=== PATIENT | male | born 1950 | race Caucasian/White ===

== ENCOUNTER 2017-09-16 15:42 | Observation (INO) | payer MEDICARE, SELFPAY ==
[2017-09-16] VITALS (15 sets, daily range): BP systolic 106–150; BP diastolic 68–83; PULSE 63–76; RESP 16–25; TEMP 36.4–36.8; O2SAT 93–97; BMI 40.1
--- NOTE | 2017-09-16 15:50 | XR_ITS ---
XR chest CHP 2V HISTORY: ITS.REASON: dyspnea ORDERING PHYSICIAN: Alfonso Freire MD PATIENT AGE: 67 years COMPARISON: 03/31/2016 FINDINGS: The cardiomediastinal silhouette and pulmonary vascularity are within normal limits. There is coarsening of the bronchovascular markings which may be related to smoking-related lung disease/chronic bronchitis. No lobar consolidation or collapse. No significant change from the previous exam.. No acute bony abnormalities. IMPRESSION: Chronic coarsening of the bronchovascular markings consistent with smoking-related lung disease/chronic bronchitis. No change from 03/31/2016
[2017-09-16 16:46] LABS: ABG Base Excess -4.3 mmol/L (-2.4-2.3); ABG Oxygen Saturation 84 % (90-100); ABG PCO2 30.9 mmhg (35.0-45.0); ABG PH 7.43 mmol/L (7.35-7.45); ABG PO2 50.6 mmhg (80-100)
[2017-09-16 16:48] LABS: Allen's Test ACCEPTABLE; Oxygen ROOM AIR %; Source L RADIAL
[2017-09-16 17:26] LABS: Basophils % 0.4 % (0.1-2.0); Eosinophils # 0.2 K/mm3 (0.0-0.4); Eosinophils % 2.1 % (0.1-12.0); Hematocrit 28.8 % (42.0-52.0); Lymphocytes # 0.9 K/mm3 (0.7-4.5); Lymphocytes % 11.9 K/mm3 (10-50); Mean Corpuscular HGB Conc 27.6 g/dL (31.8-35.4); Mean Corpuscular Hemoglobin 17.9 pg (27.0-31.2); Mean Corpuscular Volume 64.9 fl (80-94); Mean Platelet Volume 6.6 fl (7.4-10.4); Monocytes # 0.5 K/mm3 (0.1-1.0); Monocytes % 6.9 % (1.7-9.3); Neutrophils # 6.1 K/mm3 (1.8-7.8); Neutrophils % 78.6 % (37.0-80.0); Platelet Count 325 K/mm3 (142-424); Red Blood Count 4.43 M/mm3 (4.60-6.20); Red Cell Distribution Width 18.7 % (11.5-17.5); White Blood Count 7.8 K/mm3 (4.8-10.8)
[2017-09-16 17:40] LABS: Hemoglobin 7.9 g/dL (14.1-18.0); Lactic Acid 1.7 mmol/L (0.4-2.0)
[2017-09-16 17:42] LABS: Alanine Aminotransferase 14 U/L (12-78); Albumin Level 3.3 gm/dL (3.4-5.0); Albumin/Globulin Ratio 0.7 (1.1-1.8); Alkaline Phosphatase 154 U/L (46-116); Amylase 49 U/L (25-125); Anion Gap 6.7 mEq/L (5-15); Aspartate Amino Transferase 17 U/L (15-37); Bilirubin,Total 1.2 mg/dL (0.2-1.0); Blood Urea Nitrogen 17 mg/dL (7-18); Calcium 8.8 mg/dL (8.5-10.1); Carbon Dioxide 26 mmol/L (21.0-32.0); Chloride 101 mmol/L (98-107); Creatinine Clearance Estimated 98 mL/min (0-300); Creatinine,Serum 1.35 mg/dL (0.70-1.30); Estimated Glomerular Filt Rate 53 ml/min (>60); GFR (African American) 64 ML/MIN (>60); Globulin 4.9 gm/dl (1.3-3.2); Glucose 115 mg/dL (74-106); Lipase 117 u/L (73-393); Potassium 3.7 mmoL/L (3.5-5.1); Sodium 130 mmol/L (136-145); Total Protein,Serum 8.2 gm/dL (6.4-8.2)
[2017-09-16 17:50] LABS: D-Dimer 526 (0-400)
--- NOTE | 2017-09-16 17:52 | CT_ITS ---
CT angio chest HISTORY: Axial and there well aerated and is multilocular markings chest pain with positive d-dimer ITS.REASON: positive d-dimer ORDERING PHYSICIAN: Heath Lugo MD PATIENT AGE: 67 years TECHNIQUE: Axial images obtained following the administration of 75 mL of Isovue 370 . Sagittal, and coronal reformatted images are also generated and reviewed. COMPARISON: None FINDINGS: No evidence of pulmonary embolus or aortic aneurysm. Normal heart size. There is mild thickening of the pericardium posteriorly. Coronary artery calcifications are present. There is mild mediastinal adenopathy with scattered nodes within the mediastinum. The largest node is pretracheal region at 1.9 x 1.4 cm. Other smaller nodes are present including a cluster of nodes in the right paratracheal region at 2.7 x 2.8 cm. Small nodes are present in the nicolas. There are mild fibrotic changes in the periphery of the lung lewis with some honeycombing in the left lung base with some prominence of the interstitium and bronchial thickening. No lobar consolidation or collapse. There is trace left-sided effusion Upper abdominal images show blurring gallstones in the gallbladder. There is a 2.6 x 1.6 isodensity in the left hepatic lobe likely related to a cyst. Thoracic spondylosis. IMPRESSION: 1. No evidence of pulmonary embolus or aortic aneurysm. 2. Interstitial changes with mild pulmonary fibrosis infiltrate is left effusion. 3. Mediastinal adenopathy. 4. Cholelithiasis with left hepatic cyst
--- NOTE | 2017-09-16 17:52 | HMH.EDSOB ---
ED Disposition Clinical Impression: Hypoxia Anemia Qualifiers: Anemia type: iron deficiency Iron deficiency anemia type: unspecified iron deficiency Qualified Code(s): D50.9 - Iron deficiency anemia, unspecified Disposition: Admitted As Inpatient Condition on Discharge: Good Time of Disposition: 19:17 - Critical Care Critical Care Time: No Attestation: On 09/16/17, the high probability of a clinically significant, sudden or life threatening deterioration of the following system(s) required my full and direct attention, intervention and personal management. The time I documented below is in addition to time spent performing reported procedures but includes the following listed in this critical care notation. Total Critical Care Time: 35 Vital system(s) involved:: Respiratory Failure My critical care processes included: Assessment & monitoring of V/S, Initial and Re-exams, Data Review/Interpretation, Coordinating Care, Medication Orders and management, Documentation Medical Decision Making - Medical Records Medical records reviewed: Yes: I reviewed the patient's medical records. Vital Signs: 09/16/17 15:43 09/16/17 19:48 09/16/17 20:00 Temperature 98.1 F 97.8 F Temperature Source Oral Oral Pulse Rate Pulse Rate [Right Radial] 69 66 Respiratory Rate 20 23 18 Blood Pressure Blood Pressure [Right Arm] 106/82 150/83 Blood Pressure Mean [Right Arm] 90 105 Blood Pressure Source Blood Pressure Source [Right Arm] Automatic Cuff Automatic Cuff Blood Pressure Position Blood Pressure Position [Right Arm] Sitting Sitting 02 Sat by Pulse Oximetry 97 93 L 93 L Oxygen Delivery Method Room Air Nasal Cannula Nasal Cannula Oxygen Flow Rate (LPM) 2 2 09/16/17 20:07 09/16/17 21:00 Temperature Temperature Source Pulse Rate 63 Pulse Rate [Right Radial] Respiratory Rate 25 H Blood Pressure 128/73 Blood Pressure [Right Arm] Blood Pressure Mean [Right Arm] Blood Pressure Source Automatic Cuff Blood Pressure Source [Right Arm] Blood Pressure Position Sitting Blood Pressure Position [Right Arm] 02 Sat by Pulse Oximetry Oxygen Delivery Method Nasal Cannula Nasal Cannula Oxygen Flow Rate (LPM) 2 2 - Lab Data Lab Results 09/16/17 15:50: Specimen Source L radial, O2 % Room air, ABG pH 7.43, ABG pCO2 30.9 L, ABG pO2 50.6 L, ABG HCO3 20.0 L, ABG Total CO2 21.0 L, ABG O2 Saturation 84 L*, ABG Base Excess -4.3 L, Vinod Test Acceptable 09/16/17 17:10: WBC 7.8, RBC 4.43 L, Hgb 7.9 L*, Hct 28.8 L, MCV 64.9 L, MCH 17.9 L, MCHC 27.6 L, RDW 18.7 H, Plt Count 325, MPV 6.6 L, Neut % (Auto) 78.6, Lymph % (Auto) 11.9, Craig % (Auto) 6.9, Eos % (Auto) 2.1, Baso % (Auto) 0.4, Neut # (Auto) 6.1, Lymph # (Auto) 0.9, Craig # (Auto) 0.5, Eos # (Auto) 0.2, Baso # (Auto) 0.0 09/16/17 17:10: Sodium 130 L, Potassium 3.7, Chloride 101, Carbon Dioxide 26, Anion Gap 6.7, BUN 17, Creatinine 1.35 H, Estimated Creat Clear 98, Estimated GFR 53 L, Est GFR ( Amer) 64, Glucose 115 H, Calcium 8.8, Total Bilirubin 1.2 H, AST 17, ALT 14, Alkaline Phosphatase 154 H, Total Protein 8.2, Albumin 3.3 L, Globulin 4.9 H, Albumin/Globulin Ratio 0.7 L, Amylase 49, Lipase 117 09/16/17 17:10: Total Creatine Kinase 64, CK-MB (CK-2) < 0.5, CK-MB (CK-2) Rel Index 0.8, Troponin I < 0.02 09/16/17 17:10: D-Dimer 526 H* 09/16/17 17:10: B-Natriuretic Peptide 160 H 09/16/17 17:10: Lactic Acid 1.7 09/16/17 17:10: Ferritin 14 09/16/17 17:10: Iron 21 L, TIBC 434, Iron Saturation 5 L, Unsaturated IBC 413 H, Vitamin B12 151 L, Folate 11.6 09/16/17 19:40: Blood Type O Negative, Antibody Screen Negative, Crossmatch (AHG) See Detail Result diagrams: 09/17/17 03:45 09/16/17 17:10 Orders (Tests/Meds): ED MEDICATIONS Discontinued Medications Generic Name Dose Route Start Last Admin Trade Name Freq PRN Reason Stop Dose Admin Sodium Chloride 250 mls @ 25 mls/hr 09/16/17 19:45 09/16/17 21:50 Sod Chloride 0.9% 250ml Bag IV 10/16/17
[2017-09-16 17:55] LABS: Creatine Kinase 64 U/L (39-308); Troponin I < 0.02 ng/ml (0.00-0.06)
[2017-09-16 17:56] LABS: CKMB Relative Index 0.8 U/L (0-4.0); Creatine Kinase MB < 0.5 mg/ml (0.0-3.6)
--- NOTE | 2017-09-16 22:10 | PC.NURSE ---
pt admitted to floor and to receive 2 units of blood, in the TAR documentation tool the first unit of blood did not scan appropriately, pre vitals were obtained at 2149, blood unit number [id number] was verified with Radha Tejada RN, blood began transfusing at 2210 at a rate of 75 ml/hr, vitals signs were obtained per blood administration protocol and documented under the vital sign assessment tool on the pt worklist, no adverse reactions noted, total intake was 250 ml, 2nd unit was transfused without issue and documented accordingly in the TAR documentation tool.
[2017-09-17] VITALS (14 sets, daily range): BP systolic 112–136; BP diastolic 69–82; PULSE 66–80; RESP 18–20; TEMP 36.5–36.8; O2SAT 92–96
[2017-09-17 04:26] LABS: Hematocrit 30.3 % (42.0-52.0)
[2017-09-17 04:30] LABS: Hemoglobin 8.9 g/dL (14.1-18.0)
--- NOTE | 2017-09-17 07:38 | HMH.PHAVTE ---
[facility] Pharmacy VTE Monitoring - Patient Demographics Admission date: 09/16/17 Report Date: 09/17/17 Time: 07:38 Allergies/Adverse Reactions: Patient Allergies No Known Allergies Allergy (Unverified 08/17/17 14:34) Height: 1.78 m Weight: 127.006 kg Patient Problems: Current Active Problems Hypoxia (Acute) Anemia (Acute) - VTE Risk Labs: VTE Related Lab Results Hgb 8.9 g/dL (14.1-18.0) L D 09/17/17 03:45 Hct 30.3 % (42.0-52.0) L 09/17/17 03:45 Plt Count 325 K/mm3 (142-424) 09/16/17 17:10 BUN 17 mg/dL (7-18) 09/16/17 17:10 Creatinine 1.35 mg/dL (0.70-1.30) H 09/16/17 17:10 Estimated Creat Clear 98 mL/min (0-300) 09/16/17 17:10 VTE Score: 3 VTE Risk Level: Low Risk Clinical Trial Participant: No - Prophylaxis VTE Prophylaxis Ordered?: Yes Types of VTE Prophylaxis: TEDS Knee High
--- NOTE | 2017-09-17 08:51 | HMH.HP ---
*Admission Date: 09/16/17 <Renee Vila 09/17/17 09:04> *Chief complaint: SOA <Renee Vila 09/17/17 09:04> *History of present illness: Mr. Heck is 67-year-old male who states he has been getting progressively more short of air with walking. He presented to the office of [facility] yesterday to be evaluated and his oxygen sats were low (77-82% on RA) as was his hemoglobin (8). He was sent to the ER for evaluation and treatment. He was admitted and placed on oxygen and given 2 units of blood. He states this a.m. he is feeling better. He is still wearing oxygen and his sats are in the upper 90's on 2L. He denies any pain and is anxious to go home. <Renee Vila 09/17/17 11:41> [facility] History Medical History: Reports:: Atherosclerotic Heart Disease, Hyperlipidemia, Hypertension <Renee Vila 09/17/17 11:41> Other Medical History: Reports: Arthritis <Renee Vila 09/17/17 11:41> Laterality Cases: Bilateral: Partial Knee Replacement <Renee Vila 09/17/17 11:41> Other Surgeries: Yes: Coronary Stent <Renee Vila 09/17/17 11:41> Comment: Left foot, Bone spur removed right heel <Renee Vila 09/17/17 11:41> - *Social History Smoking Status: Never smoker <Renee Vila 09/17/17 11:41> - Psychiatric History Expresses thoughts of harming self/others: None <Renee Vial 09/17/17 09:04> Suicide Plan Description: No Plan <Renee Vila 09/17/17 09:04> *Family Hx:: Coronary Artery Disease, Heart Attack <Renee Vila 09/17/17 11:41> Review of Systems - Constitutional Reports fatigue, Reports lack of energy, Reports weakness <Renee Vila 09/17/17 09:04> - Eyes Denies blurry vision, Denies double vision <Renee Vila 09/17/17 09:04> - ENT Reports nasal congestion, Reports sore throat <Renee Vila 09/17/17 09:04> - *Cardiovascular Reports chest pain with activity, Reports shortness of breath with activity, Reports fast heart rate <Renee Vila 09/17/17 09:04> - *Respiratory Reports cough, Reports shortness of breath with activity <Renee Vila 09/17/17 09:04> - *Gastrointestinal Denies abdominal pain, Denies loose stools, Denies nausea, Denies vomiting <Renee Vila 09/17/17 09:04> - *Genitourinary Denies difficulty urinating, Denies painful urination <Renee Vila 09/17/17 09:04> - *Musculoskeletal Denies joint pain <Renee Vila 09/17/17 09:04> - *Neurologic Denies confusion, Denies dizziness <Renee Vila 09/17/17 09:04> Meds Home Medications Medication Instructions Recorded Confirmed Type Aspirin [Aspirin 81mg EC Tab] 81 mg PO DAILY 09/17/17 10/05/17 History Atorvastatin Calcium [Atorvastatin 40 mg PO DAILY 09/17/17 10/05/17 History 40mg Tab] Carvedilol [Carvedilol 6.25mg Tab] 6.25 mg PO BID 09/17/17 10/05/17 History Omeprazole [Omeprazole 40mg 40 mg PO DAILY 09/17/17 10/05/17 History Capsule] Ranolazine [Ranexa 500mg ER tablet] 500 mg PO BID 09/17/17 10/05/17 History ALPRAZolam [Alprazolam 0.25mg 0.5 mg PO DAILY 10/04/17 10/05/17 History Tab] Acetaminophen 500 mg PO NEEDED PRN 10/04/17 10/05/17 History <Heath Lugo - 11/22/17 21:00> Allergies Allergy/AdvReac Type Severity Reaction Status Date / Time No Known Allergies Allergy Verified 11/22/17 13:51 <Heath Lugo - 11/22/17 21:00> Exam Vital signs and Labs for Last 24 Hours: Temp Pulse Resp BP Pulse Ox 97.9 F 74 18 136/82 92 L 09/17/17 12:00 09/17/17 12:00 09/17/17 12:00 09/17/17 12:00 09/17/17 12:00 <Heath Lugo - 11/22/17 21:00> Temp Pulse Resp BP Pulse Ox 98.1 F 70 20 112/74 94 L 09/17/17 03:35 09/17/17 04:00 09/17/17 03:35 09/17/17 03:35 09/17/17 03:35 Laboratory Results - last 24 hr 09/16/17 15:50: Specimen Source L radial, O2 % Room air, ABG pH 7.43, ABG pCO2 30.9 L, ABG pO2 50.6 L, ABG HCO3 20.0 L, ABG Total CO2 21.0 L,
--- NOTE | 2017-09-17 08:54 | P.HP_ITS ---
*Admission Date: 09/16/17 <Renee Vila 09/17/17 09:04> *Chief complaint: SOA <Renee Vila 09/17/17 09:04> *History of present illness: Mr. Heck is 67-year-old male who states he has been getting progressively more short of air with walking. He presented to the office of [facility] yesterday to be evaluated and his oxygen sats were low (77-82% on RA) as was his hemoglobin (8). He was sent to the ER for evaluation and treatment. He was admitted and placed on oxygen and given 2 units of blood. He states this a.m. he is feeling better. He is still wearing oxygen and his sats are in the upper 90's on 2L. He denies any pain and is anxious to go home. <Renee Vila 09/17/17 11:41> [facility] History Medical History: Reports:: Atherosclerotic Heart Disease, Hyperlipidemia, Hypertension <Renee Vila 09/17/17 11:41> Other Medical History: Reports: Arthritis <Renee Vila 09/17/17 11:41> Laterality Cases: Bilateral: Partial Knee Replacement <Renee Vila 11:41> Other Surgeries: Yes: Coronary Stent <Renee Vila 09/17/17 11:41> Comment: Left foot, Bone spur removed right heel <Renee Vila 09/17/17 11: 41> - *Social History Smoking Status: Never smoker <Renee Vila 09/17/17 11:41> - Psychiatric History Expresses thoughts of harming self/others: None <Renee Vila 09/17/17 09: 04> Suicide Plan Description: No Plan <Renee Vila 09/17/17 09:04> *Family Hx:: Coronary Artery Disease, Heart Attack <Renee Vila 09/17/17 11:41> Review of Systems - Constitutional Reports fatigue, Reports lack of energy, Reports weakness <Renee Vial 09:04> - Eyes Denies blurry vision, Denies double vision <Renee Vila 09/17/17 09:04> - ENT Reports nasal congestion, Reports sore throat <Renee Vila - 09/17/17 09:04> - *Cardiovascular Reports chest pain with activity, Reports shortness of breath with activity, Reports fast heart rate <Renee Vila 09/17/17 09:04> - *Respiratory Reports cough, Reports shortness of breath with activity <Renee Vila 09:04> - *Gastrointestinal Denies abdominal pain, Denies loose stools, Denies nausea, Denies vomiting < Renee Vila 09/17/17 09:04> - *Genitourinary Denies difficulty urinating, Denies painful urination <Renee Vila 09:04> - *Musculoskeletal Denies joint pain <Renee Vila 09/17/17 09:04> - *Neurologic Denies confusion, Denies dizziness <Renee Vila 09/17/17 09:04> Meds Home Medications Medication Instructions Recorded Confirmed Type Aspirin [Aspirin 81mg EC Tab] 81 mg PO DAILY 09/17/17 10/05/17 History Atorvastatin Calcium [Atorvastatin 40 mg PO DAILY 09/17/17 10/05/17 History 40mg Tab] Carvedilol [Carvedilol 6.25mg Tab] 6.25 mg PO BID 09/17/17 10/05/17 History Omeprazole [Omeprazole 40mg 40 mg PO DAILY 09/17/17 10/05/17 History Capsule] Ranolazine [Ranexa 500mg ER tablet] 500 mg PO BID 09/17/17 10/05/17 History ALPRAZolam [Alprazolam 0.25mg 0.5 mg PO DAILY 10/04/17 10/05/17 History Tab] Acetaminophen 500 mg PO NEEDED PRN 10/04/17 10/05/17 History <Heath Lugo - 11/22/17 21:00> Allergies Allergy/AdvReac Type Severity Reaction Status Date / Time No Known Allergies Allergy Verified 11/22/17 13:51 <Heath Lugo - 11/22/17 21:00> Exam Vital signs and Labs for Last 24 Hours: Temp Pulse Resp BP Pu
[2017-09-17 10:29] LABS: Ferritin 14 ng/mL (8-388)
--- NOTE | 2017-09-17 12:30 | HMH.DCSUM ---
General - General Admission date: 09/16/17 <Heath Lugo - 09/17/17 12:31> Discharge date: 09/17/17 <Renee Vila - 09/21/17 13:55> HPI HPI: Mr. Heck is 67-year-old male who states he has been getting progressively more short of air with walking. He presented to the office of [facility] to be evaluated and his oxygen sats were low (77-82% on RA) as was his hemoglobin (8). He was sent to the ER for evaluation and treatment. He was admitted and placed on oxygen and given 2 units of blood. He states this a.m. he is feeling better. He is still wearing oxygen and his sats are in the upper 90's on 2L. He denies any pain and is anxious to go home. <Heath Lugo - 09/17/17 12:31> Objective Vital signs: Temp Pulse Resp BP Pulse Ox 97.9 F 74 18 136/82 92 L 09/17/17 12:00 09/17/17 12:00 09/17/17 12:00 09/17/17 12:00 09/17/17 12:00 <Renee Vila - 09/21/17 13:55> Temp Pulse Resp BP Pulse Ox 98.0 F 74 18 112/74 96 09/17/17 08:00 09/17/17 08:00 09/17/17 08:00 09/17/17 08:00 09/17/17 08:00 <Heath Lugo - 09/17/17 12:31> Narrative: - Constitutional no acute distress - *Routine HEENT Exam Head: Present: normocephalic, atraumatic Eye: Present: EOMI, PERRL ENT: Present: mucous membranes moist - *Routine Neck Exam Present: supple, full ROM - *Routine Respiratory Exam Present: rales (bilateral bases). Absent: wheezes - *Routine Cardiovascular Exam Present: RRR - *Routine Abdominal Exam Present: soft, normoactive bowel sounds. Absent: tenderness - *Routine Extremities Exam Present: edema (1+ bilaterally) - *Routine Skin Exam Present: intact - *Routine Neurological Exam Present: alert, oriented X3 <Renee Vila - 09/21/17 13:55> Hospital Course Hospital Course: A CTA showed no PE. He was transfused with 2 units of PRBC's and his oxygen was weaned. H&H improved and dyspnea resolved. He was weaned to RA with sats at 96%. He was stable for discharge and will complete anemia w/u as outpt. <Renee Vila - 09/21/17 13:55> Results Labs on day of discharge: Labs from last 24 hours 09/17/17 03:45 Hgb 8.9 L D Hct 30.3 L <ParishHeath Moses - 09/17/17 12:31> DS: Diagnosis - Discharge Diagnosis (1) Anemia Status: Acute (2) Hypoxia Status: Acute <Renee Vila - 09/21/17 13:55> (1) Anemia (2) Hypoxia (3) HBP (high blood pressure) (4) Hyperlipidemia (5) History of ASCVD <Heath Lugo - 09/17/17 12:30> Meds Home Medications Medication Instructions Recorded Confirmed Type Amlodipine Besylate [Norvasc 5mg 5 mg PO DAILY 09/17/17 09/17/17 History tablet] Aspirin [Aspirin 81mg EC Tab] 81 mg PO DAILY 09/17/17 09/17/17 History Atorvastatin Calcium [Atorvastatin 40 mg PO DAILY 09/17/17 09/17/17 History 40mg Tab] Carvedilol [Carvedilol 6.25mg Tab] 6.25 mg PO BID 09/17/17 09/17/17 History Isosorbide Mononitrate [Imdur 30mg 30 mg PO DAILY 09/17/17 09/17/17 History ER tablet] Lisinopril [Lisinopril 20mg Tab] 20 mg PO BID 09/17/17 09/17/17 History Omeprazole [Omeprazole 40mg 40 mg PO DAILY 09/17/17 09/17/17 History Capsule] Ranolazine [Ranexa 500mg ER tablet] 500 mg PO BID 09/17/17 09/17/17 History <Renee Vila - 09/21/17 13:55> Allergies Allergy/AdvReac Type Severity Reaction Status Date / Time No Known Allergies Allergy Unverified 08/17/17 14:34 <Renee Vila 09/21/17 13:55> Discharge Plan - Patient Discharge Instructions ACTIVITY: Continue current activity <Heath Lugo - 09/17/17 12:31> DIET: continue same diet <Heath Lugo - 09/17/17 12:31> Patient Instructions: Anemia <Renee Vila - 09/21/17 13:55> - Follow up Plan Follow up with: Heath Lugo MD [Primary Care Provider] - 09/21/17 <Renee Vila - 09/21/17 13:55> Dispositio
--- NOTE | 2017-09-17 12:36 | P.PN_ITS ---
Internal Medicine - PN: Subj *Date: 09/17/17 *Time: 12:32 Interval history: He has been weaned to RA with O2 sats at 96% and no complaints of SOA. No abdominal pain. No BM Exam Vital signs and Labs for Last 24 Hours: Temp Pulse Resp BP Pulse Ox 98.0 F 74 18 112/74 96 09/17/17 08:00 09/17/17 08:00 09/17/17 08:00 09/17/17 08:00 09/17/17 08:00 Laboratory Results - last 24 hr 09/17/17 03:45: Hgb 8.9 L D, Hct 30.3 L I & O for Last 24 hours: Intake & Output 09/15/17 09/16/17 09/17/17 09/18/17 11:59 11:59 11:59 11:59 Intake Total 500 / 500 Balance 500 / 500 Weight 280 lb - Constitutional no acute distress - *Routine Respiratory Exam Present: CTA bilaterally - *Routine Cardiovascular Exam Present: RRR - *Routine Abdominal Exam Present: soft. Absent: tenderness, distended Assessment and Plan (1) Anemia Current visit: Yes Status: Acute Qualifiers: Anemia type: iron deficiency Iron deficiency anemia type: unspecified iron deficiency Qualified Code(s): D50.9 - Iron deficiency anemia, unspecified Category: Medical Code(s): D64.9 - Anemia, unspecified (2) Hypoxia Current visit: Yes Status: Acute Category: Medical Code(s): R09.02 - Hypoxemia (3) HBP (high blood pressure) Current visit: Yes Status: Acute Category: Medical Code(s): I10 - Essential (primary) hypertension (4) Hyperlipidemia Current visit: Yes Status: Acute Category: Medical Code(s): E78.5 - Hyperlipidemia, unspecified (5) History of ASCVD Current visit: Yes Status: Acute Category: Medical Code(s): Z86.79 - Personal history of other diseases of the circulatory system - Assessment and plan all Dx Assessment and Plan for all problems:: H&H has improved and dyspnea resolved. He has been weaned to RA with sats at 96 %. Anemia labs are pending. He is stable for discharge and will complete anemia w/u as outpt.
[2017-09-18 08:22] LABS: Iron 21 ug/dL (38-169); UIBC 413 ug/dL (111-343)
[2017-09-18 19:01] LABS: Folate 11.6 ng/mL (>3.0); Iron Saturation 5 % (15-55); Vitamin B12 151 pg/mL (232-1245)
== END 2017-09-17 13:40 | disposition home or self-care (01) | DRG 812 ==
LOC: ER 17:52 → 2ND 09-17 11:21
PROVIDERS: Admitting Provider Family Medicine; Emergency Provider Emergency Medicine; PCP Family Medicine; Visit Provider Family Medicine
DX: D50.9 Iron deficiency anemia, unspecified; I10 Essential (primary) hypertension; R09.02 Hypoxemia; R06.09 Other forms of dyspnea
CPT/HCPCS: 36430; 71046; 71275; 80053; 82150; 82550; 82553; 82607; 82728; 82746; 82803; 83550; 83605; 83690; 83880; 84484; 85014; 85018; 85025; 85378; 86850; 87040; 93005; 94760; 94761; 99283; 99284; G0378; P9016; Q9967

== ENCOUNTER 2017-10-05 09:55 | Day surgery (SDC) | payer MEDICARE, SELFPAY ==
[2017-10-04 15:15] VITALS: BMI 39.7
[2017-10-05 10:30] VITALS: BP 105/66; PULSE 66; RESP 18; TEMP 36.8; O2SAT 92
--- NOTE | 2017-10-05 10:34 | HMH.ANESCL ---
[facility] Anesthesia Checklist - Patient Identification Patient Identification: Arm Band, Verbal (Name & ) - Structural Data Admitted From: Home Planned Operative Procedure/s: egd/colon Consent for Planned Operative Procedure(s) Verified: Yes Verified Documents: Surgical Consent - NPO Status Verified Time NPO: 00:00 - Additional verifications Patient : No Anesthesia Reactions: No Hx Blood Transfusions: No Blood Transfusion Reaction: No Cephalosporin Allergy: No Previous Colonoscopy: No - Cardiovascular Assessment Heart Sounds: S1 & S2 Pulse Strength: Baseline Pulse Rhythm: Regular Peripheral Edema: No - Airway Assessment C-Spine Mobility Assessed: Yes TMJ Mobility Assessed: Yes Dentition: Good Dentition (missing several teeth) - Neurological Assessment Level of Consciousness: Awake, Alert, Appropriate Hx Seizures: No Numbness or tingling in extremities: No - Anesthesia Plan Anesthesia Risk discussed: Yes ASA Class: III Anesthesia Type: MAC [facility] Anesthesia HX I have reviewed the patient's past medical history: Yes Medical History: Reports:: Atherosclerotic Heart Disease, Coronary Artery Disease, Gastroesophageal Reflux Disease(GERD), Hyperlipidemia, Hypertension Denies:: Cancer, Diabetes Mellitus Type 1, Diabetes Mellitus Type 2, Internal Pacemaker, Lung Disease, MRSA Other Medical History: Reports: Anemia, Arthritis Laterality Cases: Bilateral: Arthroscopy Knee Other Surgeries: Yes: Coronary Stent. No: Pacemaker Amputation: No Fractures: No *Family Hx:: Cancer, Coronary Artery Disease, Heart Attack, Hypertension
[2017-10-05 10:49] VITALS: O2SAT 96
[2017-10-05 11:30] VITALS: BP 102/63; PULSE 66; RESP 20; TEMP 36.4; O2SAT 95
--- NOTE | 2017-10-05 11:31 | [facility]H.SCOPE ---
- Procedure: Date: 10/05/17 Procedure Performed:: 1. Esophagogastroduodenoscopy with biopsies 2. Total colonoscopy to terminal ileum with polypectomy Indications:: Patient is a 67-year-old white male referred by Dr. Moses Lugo for upper endoscopy and colonoscopy to workup anemia. Over about 2 months the patient has had progressive dyspnea on exertion. It became quite severe recently and he presented to [facility] where he was found to have low oxygen saturation of approximately 80% and blood work revealed a hemoglobin of 8. Patient was admitted for inpatient management on 09/16/17 and was transfused with good response and discharged to follow-up for outpatient hou endoscopy. Patient admits to some constipation. He takes stool softeners. He has some minor rectal bleeding. He had a prior history of coronary stenting and saw Dr. García for preoperative risk assessment. Performing Provider:: Fermin Mccartney MD Referring Provider:: Moses Lugo MD Sedation:: Propofol Procedure:: Consent was obtained and patient was taken to same-day surgery endoscopy procedure room. He was positioned in a lateral decubitus position. Adequate anesthesia was achieved with anesthesia titration of propofol. Olympus endoscope was inserted via the oropharynx and advanced through the esophagus which appeared grossly normal. Stomach was cannulated and insufflated. Retroflexion revealed a small hiatal hernia. There were some minuscule gastric erosions near the cardia but these were minor. Gastric antral mucosal biopsies obtained for CLOtest for H. pylori. Gastric biopsy was obtained as well. Pylorus was traversed. Duodenal bulb and duodenal sweep were unremarkable. Endoscope was withdrawn into the distal esophagus and several biopsies were obtained at the gastroesophageal junction. Endoscope was withdrawn. Next patient was repositioned for colonoscopy. Digital examination was performed which was unremarkable. Variable stiffness Olympus colonoscope was inserted via the anus and was advanced to the cecum. He did have somewhat of a floppy atonic colon with some floppiness of the sigmoid colon. Ultimately it was advanced into the cecum where the ileocecal valve and appendiceal orifice were clearly identified. The colonoscope was advanced into the terminal ileum briefly which appeared grossly normal. Colonoscope was withdrawn through the colon with careful surveillance. He had a diminutive tiny hyperplastic appearing polyp in the sigmoid colon removed with cold biopsy forceps. Colonoscope was withdrawn into the rectum and retroflexion revealed internal hemorrhoids which appear to be nonpathologic. Colonoscope was withdrawn. Findings:: Small hiatal hernia Diminutive sigmoid polyp Nonbleeding internal hemorrhoids Recommendations:: No apparent etiology on upper endoscopy or colonoscopy to explain anemia. I will follow-up and histopathologically recommend repeat colonoscopy in 5 years. Complications:: None Estimated blood obtained (mL): 3
[2017-10-05 11:40] VITALS: BP 99/58; PULSE 65; RESP 20; O2SAT 95
[2017-10-05 11:50] VITALS: BP 107/69; PULSE 66; RESP 20; O2SAT 95
[2017-10-05 12:17] VITALS: BP 111/69; PULSE 69; RESP 20; O2SAT 95
== END 2017-10-05 12:00 | disposition home or self-care (01) ==
LOC: OUTP 09:57
PROVIDERS: PCP Family Medicine; Visit Provider Surgery
PROC: 0DJ08ZZ Inspection of Upper Intestinal Tract, Via Natural or Artificial Opening Endoscopic (ICD-10-PCS; CPT 43235; principal; 2017-10-05 10:30)
DX: D64.9 Anemia, unspecified (principal); K63.5 Polyp of colon; K64.8 Other hemorrhoids; K44.9 Diaphragmatic hernia without obstruction or gangrene
CPT/HCPCS: 43239; 45380; 87339; 88305; 88342

== ENCOUNTER → 2017-11-05 09:42 | Outpatient (CLI) | payer MEDICARE, SELFPAY ==
--- NOTE | 2017-11-05 09:44 | FL_ITS ---
FL small bowel follow through COMPARISON: None HISTORY: Anemia TECHNIQUE: Sequential overhead films following drinking barium followed by fluoroscopy with spot filming of the terminal ileum FINDINGS: Initial applications development consultant film shows minimal small bowel gas in the right lower quadrant. There is mildly dilated loop of sigmoid colon. On the initial overhead film at 35 minutes barium is seen opacifying the stomach which appears grossly normal. The duodenal sweep and proximal and mid small bowel appear normal. At 55 minutes barium was seen in the ascending colon. At this time fluoroscopy elicited no areas of tenderness in the right lower quadrant. The terminal ileum was somewhat difficult to visualize due to overlapping loops of bowel but there is no abnormal displacement or distortion of the distal small bowel. Fluoroscopy time was 1 minute 15 seconds. IMPRESSION: Grossly normal small bowel follow-through
== END ==
PROVIDERS: PCP Family Medicine; Visit Provider Surgery
DX: D64.9 Anemia, unspecified (principal)
CPT/HCPCS: 74250

== ENCOUNTER 2018-08-16 09:19 | Observation (INO) ==
--- NOTE | 2018-08-16 09:24 | Emergency Department Note ---
ED Disposition Clinical Impression: Chest pain Qualifiers: Chest pain type: unspecified Qualified Code(s): R07.9 - Chest pain, unspecified Disposition: Still a Patient Condition on Discharge: Good - Critical Care Critical Care Time: No Attestation: On , the high probability of a clinically significant, sudden or life threatening deterioration of the following system(s) required my full and direct attention, intervention and personal management. The time I documented below is in addition to time spent performing reported procedures but includes the following listed in this critical care notation. Medical Decision Making - Colt Inquiry Pt receiving controlled substance: No Vital Signs: 08/16/18 09:20 08/16/18 10:08 08/16/18 10:55 Temperature 97.5 F L Temperature Source Oral Pulse Rate [Right] 60 59 L 54 L Respiratory Rate 20 18 18 Blood Pressure [Right Arm] 149/78 H 108/59 L 115/71 Blood Pressure Mean [Right Arm] 101 75 85 Blood Pressure Source [Right Arm] Automatic Cuff Automatic Cuff Automatic Cuff Blood Pressure Position [Right Arm] Supine Supine Sitting 02 Sat by Pulse Oximetry 85 L 96 96 Oxygen Delivery Method Room Air Nasal Cannula Nasal Cannula Oxygen Flow Rate (LPM) 2 - Lab Data Lab Results 08/16/18 09:30: WBC 8.4, RBC 5.40, Hgb 14.6, Hct 45.5, MCV 84.2, MCH 27.0, MCHC 32.0, RDW 14.7, Plt Count 249, MPV 7.4, Neut % (Auto) 77.0, Lymph % (Auto) 12.8, [place] % (Auto) 6.4, Eos % (Auto) 3.2, Baso % (Auto) 0.5, Neut # (Auto) 6.4, Lymph # (Auto) 1.1, [place] # (Auto) 0.5, Eos # (Auto) 0.3, Baso # (Auto) 0.0 08/16/18 09:30: Sodium 139, Potassium 4.1, Chloride 102, Carbon Dioxide 25, Anion Gap 16.1 H, BUN 17, Creatinine 1.44 H, Estimated Creat Clear 59, Estimated GFR 49 L, Est GFR ( Amer) 59, Glucose 104, Calcium 9.6, Total Bilirubin 1.2 H, AST 27, ALT 25, Alkaline Phosphatase 144 H, Total Protein 8.9 H, Albumin 3.6, Globulin 5.3 H, Albumin/Globulin Ratio 0.7 L 08/16/18 09:30: Troponin I < 0.02 Result diagrams: 08/16/18 09:30 08/16/18 09:30 Orders (Tests/Meds): ED MEDICATIONS Generic Name Dose Route Start Last Admin Trade Name Freq PRN Reason Stop Dose Admin Diphenhydramine HCl 50 mg 08/16/18 11:08 Benadryl 50mg/1ml Vial IV 08/16/18 11:09 ONCE ONE Fentanyl Citrate 50 mcg 08/16/18 11:08 Fentanyl 100mcg/2ml Vial IV 08/17/18 11:08 Q3MINP PRN Moderate to Severe Pain Fentanyl Citrate 25 mcg 08/16/18 11:08 Fentanyl 250mcg/5ml Vial IV 08/17/18 11:08 Q3MINP PRN Moderate to Severe Pain Fentanyl Citrate 50 mcg 08/16/18 11:08 Fentanyl 250mcg/5ml Vial IV 08/17/18 11:08 Q3MINP PRN Moderate to Severe Pain Fentanyl Citrate 25 mcg 08/16/18 11:08 Fentanyl 100mcg/2ml Vial IV 08/17/18 11:08 Q3MINP PRN Moderate to Severe Pain Flumazenil 0.2 mg 08/16/18 11:08 Romazicon 0.1mg/Ml 5ml Vial IV 08/16/18 23:00 NEEDED PRN Sedation Heparin Sodium (Porcine) 10,000 unit 08/16/18 11:08 Heparin 1,000 Units/Ml 10ml Vial (Repeater Operator) IV 08/16/18 15:08 NEEDED PRN Emergency Box Gis Scientist Heparin Sodium/Sodium Chloride 3,000 unit 08/16/18 11:08 Heparin 1000 Units/500ml Ns (Repeater Operator) IV 08/16/18 11:09 ONCE ONE Sodium Chloride 1,000 mls @ 25 mls/hr 08/16/18 11:15 Sod Chlor 0.9% 1000ml Bag IV 08/17/18 11:08 .Q25H ASHLEIGH Lidocaine HCl 20 ml 08/16/18 11:08 Lidocaine 1% 20ml Mdv IJ 08/16/18 11:09 ONCE ONE Midazolam HCl 1 mg 08/16/18 11:08 Midazolam 2mg/2ml Vial IV 08/17/18 11:08 Q3MINP PRN Sedation Midazolam HCl 1 mg 08/16/18 11:08 Midazolam 1mg/Ml 5ml Vial IV 08/17/18 11:08 Q3MINP PRN Sedation Naloxone HCl 0.4 mg 08/16/18 11:08 Narcan 0.4mg/Ml Vial IV 08/17/18 11:08 Q5MINP PRN Decreased respirations Nitroglycerin 800 mcg 08/16/18 11:08 Nitroglycerin 800mcg/8ml Syr (Repeater Operator) IV 08/17/18 11:08 NEEDED PRN Emergency Box Gis Scientist Sodium Chloride 10 ml 08/16/18 11:08 Saline Flush 10ml Syringe IV 09/15/18 11:07 NEEDED PRN Maintain IV Site Verapamil HCl 2.5 mg 08/16/18 11:08 Verapamil 2.5mg/Ml 2ml Vial IV 08/16/18 11:09 ONCE ONE Discontinued Medications Generic Name Dose Route Start Last Admin Trade Name Freq PRN Reason Stop Dose Admin Aspirin 243 mg 08/16/18 09:32 08/16/18 10:05 Aspirin 81mg Chewable Tablet PO 08/16/18 09:33 243 mg ONCE ONE Administration ORDERS Category Date Time Status XR chest portable Stat Exams 08/16/18 09:32 Taken Urinalysis and Microscopic Stat Lab 08/16/18 09:32 Ordered - Radiology Data #1 Image(s): Chest Chronic coarseness of bronchial markings, unchanged. No acute process. - ECG Data Tracing #1 EKG interpreted by Marcelo Holland MD: Rhythm: sinus Rate: 66 [place]: normal Ectopy: none Conduction: normal ST Segment Changes: none T Wave Changes: none Q Waves: none Poor R wave no evidence of acute ischemia or injury - Physician Consults Physician Consulted: MICHAEL Daugherty, for Dr. García Time: 10:40 Reason -: Cardiology Eval/Care Comment/Response: He says that he saw the patient in the office last week and recommended a heart cath, but the patient had some availability or transportation issues. He requests that the patient be admitted and they will set him up for a heart cath. Patient is agreeable. Additional Consult: Parish Time: 10:47 Reason -: Admission Comment/Response: Agrees to admit the patient to the hospital. We discussed the patient's clinical information, including history, exam, laboratory and radiology results and ED course. Per hospital procedure, I will write temporary bridge inpatient orders on the patient. Specific orders requested by the admitting physician: Per cardiology General Adult HPI - General Chief complaint: Chest Pain Stated complaint: chest pain Time Seen by Provider: 08/16/18 09:40 - History of Present Illness HPI narrative: Complains of chest pain. Says that it started at 7 PM last night and was in his left anterior chest without radiation. He has chronic dyspnea on exertion for the past couple of years, this was unchanged. No new shortness of breath, diaphoresis, or nausea. He took 2 nitroglycerin yesterday evening which diminished the pain, but did not completely relieve it. The pain remained there until bedtime. He says he was able to go to sleep last night and when he woke up this morning the pain was still there, but not as bad. He says it has gone away for the past couple hours but he will get very brief pains that just last a couple of minutes. Currently he is pain-free. He says he has a previous history of a heart attack and stent placement in [place] by Dr. García 2 years ago. He has taken 81 mg aspirin this morning. - Related Data Home Medications Medication Instructions Recorded Confirmed Acetaminophen 1,000 mg PO BID 08/16/18 08/16/18 Amlodipine Besylate 5 mg PO DAILY 08/16/18 08/16/18 Aspirin [Aspirin 81mg chewable 81 mg PO DAILY 08/16/18 08/16/18 tab] Carvedilol [Carvedilol 6.25mg Tab] 6.25 mg PO DAILY 08/16/18 08/16/18 Cyanocobalamin (Vitamin B-12) 1,000 mcg PO DAILY 08/16/18 08/16/18 [B-12] Diclofenac Sodium [Voltaren 100gm 1 applicatio TP BID 08/16/18 08/16/18 Topical Gel] Isosorbide Mononitrate [Imdur 30mg 30 mg PO BID 08/16/18 08/16/18 ER tablet] Lisinopril [Lisinopril 20mg Tab] 20 mg PO DAILY 08/16/18 08/16/18 Multivit-Min36/Iron/Folic Acid 1 each PO DAILY 08/16/18 08/16/18 [Geritol Complete Tablet] Omeprazole [Omeprazole 40mg 40 mg PO DAILY 08/16/18 08/16/18 Capsule] Ranolazine [Ranexa 500mg ER tablet] 500 mg PO DAILY 08/16/18 08/16/18 diphenhydrAMINE HCl [Benadryl] 50 mg PO BID 08/16/18 08/16/18 Allergies Allergy/AdvReac Type Severity Reaction Status Date / Time No Known Allergies Allergy Verified 08/08/18 10:40 [facility] History - Hepatitis A Screen Attestation statement:: This patient has been screened for Hepatitis A risk factors. I have reviewed the patient's past medical history: Yes Medical History: Reports:: Atherosclerotic Heart Disease, Gastroesophageal Reflux Disease(GERD), Hyperlipidemia, Hypertension Denies:: Cancer, Diabetes Mellitus Type 1, Diabetes Mellitus Type 2, MRSA, Seizures Other Medical History: Reports: Anemia, Arthritis. Denies: Blood Transfusion Reaction Laterality Cases: Bilateral: Arthroscopy Knee Other Surgeries: Yes: Cardiac Catheterization, Coronary Stent Amputation: No Fractures: No Comment: Left foot, Bone spur removed right heel - Social History Smoking Status: Former smoker Alcohol Intake: never Alcohol Intake Frequency:: other Substance Use Type: denies use Occupational Status: retired Housing: house Household Members: family Family Hx:: Cancer, Coronary Artery Disease, Heart Attack, Hypertension ROS Obtained: Yes All systems reviewed & no additional complaints - Cardiovascular Cardiovascular: Reports chest pain, Denies diaphoresis, Reports dyspnea on exertion - Respiratory Respiratory: No cough - Gastrointestinal Gastrointestingal: Denies: abdominal pain, nausea, vomiting Physical Exam - General General appearance: alert, in no apparent distress - Head Head exam: atraumatic, normocephalic - Eye Eye exam: Present: normal appearance, PERRL, EOMI - ENT ENT exam: Present: mucous membranes moist - Neck Neck exam: Present: normal inspection, trachea midline - Chest Chest inspection: Present: normal inspection, symmetric chest wall rise. Absent: tenderness - Respiratory Respiratory exam: Present: normal lung sounds bilaterally, respiratory distress - Cardiovascular Cardiovascular exam: Present: regular rate, normal rhythm, normal heart sounds - Abdominal Exam Abdominal exam: Present: soft. Absent: distention, tenderness, guarding - Extremities Exam Extremities exam: Present: normal inspection, full ROM. Absent: tenderness, pedal edema, calf tenderness - Neurological Exam Neurological exam: Present: alert, oriented X3 - Psychiatric Psychiatric exam: Present: normal affect, normal mood - Skin Skin exam: Present: warm, dry
[2018-08-16 09:42] LABS: Basophils % 0.5 % (0.1-2.0); Eosinophils # 0.3 K/mm3 (0.0-0.4); Eosinophils % 3.2 % (0.1-12.0); Hematocrit 45.5 % (42.0-52.0); Hemoglobin 14.6 g/dL (14.1-18.0); Lymphocytes # 1.1 K/mm3 (0.7-4.5); Lymphocytes % 12.8 % (10-50); Mean Corpuscular Volume 84.2 fl (80-94); Mean Platelet Volume 7.4 fl (7.4-10.4); Monocytes # 0.5 K/mm3 (0.1-1.0); Monocytes % 6.4 % (1.7-9.3); Neutrophils # 6.4 K/mm3 (1.8-7.8); Platelet Count 249 K/mm3 (142-424); Red Cell Distribution Width 14.7 % (11.5-17.5); White Blood Count 8.4 K/mm3 (4.8-10.8)
[2018-08-16 09:53] LABS: Albumin Level 3.6 gm/dL (3.4-5.0); Albumin/Globulin Ratio 0.7 (1.1-1.8); Anion Gap 16.1 mEq/L (5-15); Bilirubin,Total 1.2 mg/dL (0.2-1.0); Calcium 9.6 mg/dL (8.5-10.1); Globulin 5.3 gm/dl (1.3-3.2); Total Protein,Serum 8.9 gm/dL (6.4-8.2)
[2018-08-16 09:55] LABS: Potassium 4.1 mmoL/L (3.5-5.1)
--- NOTE | 2018-08-16 10:51 | Consult Report ---
History of Present Illness Consult date: 08/16/18 Requesting physician: Heath Lugo Consult reason: chest pain Chief complaint: chest pain Additional Medical History:: 1. Coronary artery disease A. Status post LAUREL to LAD, 10/2015 B. Cardiac cath, 06/2016, patent LAD stent 2. Hypertension 3. Hyperlipidemia 4. Gastroesophageal reflux disease History of present illness: Complains of chest pain. Says that it started at 7 PM last night and was in his left anterior chest without radiation. He has chronic dyspnea on exertion for the past couple of years, this was unchanged. No new shortness of breath, diaphoresis, or nausea. He took 2 nitroglycerin yesterday evening which diminished the pain, but did not completely relieve it. The pain remained there until bedtime. He says he was able to go to sleep last night and when he woke up this morning the pain was still there, but not as bad. He says it has gone away for the past couple hours but he will get very brief pains that just last a couple of minutes. Currently he is pain-free. He says he has a previous history of a heart attack and stent placement in [place] by Dr. García 2 years ago. He has taken 81 mg aspirin this morning. The above per ER MD, Dr. Holland Pt was recently seen in the office for the same symptoms. He is on 4 anti- anginal medications and states the symptoms are reminiscent of prior angina and subsequent stent placement. We were in the process of scheduling his [facility] but were awaiting his confirmation of transportation. EKG is sinus without acute changes. [facility] History Medical History: Reports:: Atherosclerotic Heart Disease, Gastroesophageal Reflux Disease(GERD), Hyperlipidemia, Hypertension Denies:: Cancer, Diabetes Mellitus Type 1, Diabetes Mellitus Type 2, MRSA, Seizures Other Medical History: Reports: Anemia, Arthritis. Denies: Blood Transfusion Reaction Laterality Cases: Bilateral: Arthroscopy Knee Other Surgeries: Yes: Cardiac Catheterization, Coronary Stent Amputation: No Fractures: No - *Social History Educational Level: Completed GED/General Educational Development Smoking Status: Former smoker Tobacco Type: cigarettes Alcohol Intake: never Alcohol Intake Frequency:: other Substance Use Type: denies use Occupational Status: retired Housing: house Household Members: family - Psychiatric History Expresses thoughts of harming self/others: None Suicide Plan Description: No Plan *Family Hx:: Cancer, Coronary Artery Disease, Heart Attack, Hypertension Meds Home Medications Medication Instructions Recorded Confirmed Type Acetaminophen 1,000 mg PO BID 08/16/18 08/16/18 History Amlodipine Besylate 5 mg PO DAILY 08/16/18 08/16/18 History Aspirin [Aspirin 81mg chewable 81 mg PO DAILY 08/16/18 08/16/18 History tab] Carvedilol [Carvedilol 6.25mg Tab] 6.25 mg PO DAILY 08/16/18 08/16/18 History Cyanocobalamin (Vitamin B-12) 1,000 mcg PO DAILY 08/16/18 08/16/18 History [B-12] Diclofenac Sodium [Voltaren 100gm 1 applicatio TP BID 08/16/18 08/16/18 History Topical Gel] Isosorbide Mononitrate [Imdur 30mg 30 mg PO BID 08/16/18 08/16/18 History ER tablet] Lisinopril [Lisinopril 20mg Tab] 20 mg PO DAILY 08/16/18 08/16/18 History Multivit-Min36/Iron/Folic Acid 1 each PO DAILY 08/16/18 08/16/18 History [Geritol Complete Tablet] Omeprazole [Omeprazole 40mg 40 mg PO DAILY 08/16/18 08/16/18 History Capsule] Ranolazine [Ranexa 500mg ER tablet] 500 mg PO DAILY 08/16/18 08/16/18 History diphenhydrAMINE HCl [Benadryl] 50 mg PO BID 08/16/18 08/16/18 History Allergies Allergy/AdvReac Type Severity Reaction Status Date / Time No Known Allergies Allergy Verified 08/08/18 10:40 Review of Systems - *Cardiovascular Reports chest pain, Reports shortness of breath with activity - *Respiratory Reports shortness of breath with activity - *Gastrointestinal Denies abdominal pain, Denies loose stools - *Genitourinary Denies blood in urine - *Musculoskeletal Reports joint pain Exam Vital signs and Labs for Last 24 Hours: Temp Pulse Resp BP Pulse Ox 97.5 F L 59 L 18 108/59 L 96 08/16/18 09:20 08/16/18 10:08 08/16/18 10:08 08/16/18 10:08 08/16/18 10:08 Laboratory Results - last 24 hr 08/16/18 09:30: WBC 8.4, RBC 5.40, Hgb 14.6, Hct 45.5, MCV 84.2, MCH 27.0, MCHC 32.0, RDW 14.7, Plt Count 249, MPV 7.4, Neut % (Auto) 77.0, Lymph % (Auto) 12.8, [place] % (Auto) 6.4, Eos % (Auto) 3.2, Baso % (Auto) 0.5, Neut # (Auto) 6.4, Lymph # (Auto) 1.1, [place] # (Auto) 0.5, Eos # (Auto) 0.3, Baso # (Auto) 0.0 08/16/18 09:30: Sodium 139, Potassium 4.1, Chloride 102, Carbon Dioxide 25, Anion Gap 16.1 H, BUN 17, Creatinine 1.44 H, Estimated Creat Clear 59, Estimated GFR 49 L, Est GFR ( Amer) 59, Glucose 104, Calcium 9.6, Total Bilirubin 1.2 H, AST 27, ALT 25, Alkaline Phosphatase 144 H, Total Protein 8.9 H, Albumin 3.6, Globulin 5.3 H, Albumin/Globulin Ratio 0.7 L 08/16/18 09:30: Troponin I < 0.02 I & O for Last 24 hours: Intake & Output 08/13/18 08/14/18 08/15/18 08/16/18 11:59 11:59 11:59 11:59 Weight 182 lb - *Routine Neck Exam Present: supple. Absent: JVD, carotid bruit - *Routine Respiratory Exam Present: CTA bilaterally. Absent: accessory muscle use, rales, rhonchi, wheezes - *Routine Cardiovascular Exam Present: RRR. Absent: murmur, gallop, rubs - *Routine Abdominal Exam Present: soft. Absent: tenderness, distended, guarding - *Routine Extremities Exam Absent: edema, calf tenderness - *Routine Neurological Exam Present: alert, oriented X3, moving all extremities Assessment and Plan (1) Unstable angina pectoris Current visit: Yes Status: Acute Category: Medical Code(s): I20.0 - Unstable angina (2) History of coronary artery stent placement Current visit: Yes Status: Acute Category: Surgical Code(s): Z95.5 - Presence of coronary angioplasty implant and graft (3) Anemia Current visit: No Status: Acute Qualifiers: Anemia type: unspecified type Qualified Code(s): D64.9 - Anemia, unspecified Category: Medical Code(s): D64.9 - Anemia, unspecified (4) HBP (high blood pressure) Current visit: No Status: Acute Qualifiers: Hypertension type: essential hypertension Qualified Code(s): I10 - Essential (primary) hypertension Category: Medical Code(s): I10 - Essential (primary) hypertension (5) CAD (coronary artery disease) Current visit: No Status: Chronic Qualifiers: Coronary Disease-Associated Artery/Lesion type: [place] artery [place] vs. transplanted heart: [place]ski heart Associated angina: with stable angina Qualified Code(s): I25.118 - Atherosclerotic heart disease of [place]ski coronary artery with other forms of angina pectoris Category: Medical Code(s): I25.10 - Atherosclerotic heart disease of [place] coronary artery without angina pectoris (6) Hyperlipidemia Current visit: No Status: Chronic Qualifiers: Hyperlipidemia type: other hyperlipidemia Qualified Code(s): E78.49 - Other hyperlipidemia; E78.4 - Other hyperlipidemia Category: Medical Code(s): E78.5 - Hyperlipidemia, unspecified - Assessment and plan all Dx Assessment and Plan for all problems:: 1. Agree with admission 2. We will plan to proceed with left heart catheterization today for recurrent angina, despite 4 anti-anginal medications, responsive to NTG SL. 3. Further recommendations to follow.
[2018-08-16 14:04] LABS: Anion Gap 13.2 mEq/L (5-15); Calcium 8.8 mg/dL (8.5-10.1); Potassium 4.2 mmoL/L (3.5-5.1)
--- NOTE | 2018-08-16 14:37 | History & Physical Report ---
*Admission Date: 08/16/18 <Ashley Flores - 08/16/18 14:37> *Chief complaint: Chest pain <Ashley Flores - 08/16/18 14:37> *History of present illness: Mr. Heck is a 68-year-old male with a history of ASCVD and degenerative joint disease who presented to [facility] complaining of chest pain. He described the pain as starting about 7 PM last night in his left anterior chest without radiation. His breathing was at baseline. He denied new shortness of breath, diaphoresis and nausea. He took 2 nitroglycerin which diminished the pain but did not completely relieve it. He was able to sleep but awakened this a.m. and the pain was still there although not as severe. The pain then resolved for a few hours but then became intermittent lasting a couple of minutes. Thus he presented to the ER. In the emergency room he was pain-free. He was noted to have a previous history of an CT and stent placement in [place] by Dr. García 2 years ago.. He had taken 81 mg of aspirin this morning. Patient was seen by cardiology in the ER who noted office visit with the same symptoms while on 4 anti-anginal medications. Patient stated to cardiology that the symptoms were reminiscent of prior angina and subsequent stent placement. Cardiology was in the process of scheduling a left heart cath but were awaiting confirmation of transportation. EKG was noted sinus rhythm without acute changes. Patient was taken directly to the [facility] from the emergency room. Left heart cath with the following results: IMPRESSION: 1. Widely proximal LAD stent 2. Normal ejection fraction 3. Elevated LVEDP which is the likely etiology for patient's associated symptoms PLAN: 1. Patient remains on 4 antianginal medications. Avoidance of tobacco products would be highly beneficial. 2. Diuretics in order to decrease LVEDP with likely improved patient's class IV angina 3. Physical therapy with aggressive risk factor modification Patient was then admitted to acute care for observation after the cath. <Ashley Flores - 08/16/18 15:53> [facility] History Medical History: Reports:: Atherosclerotic Heart Disease, Gastroesophageal Reflux Disease(GERD), Hyperlipidemia, Hypertension Denies:: Cancer, Diabetes Mellitus Type 1, Diabetes Mellitus Type 2, MRSA, Seizures <Ashley Flores 08/16/18 14:37> Other Medical History: Reports: Anemia, Arthritis. Denies: Blood Transfusion Reaction <Ashley Flores 08/16/18 14:37> Laterality Cases: Bilateral: Arthroscopy Knee <Ashley Flores 08/16/18 14:37> Other Surgeries: Yes: Cardiac Catheterization, Coronary Stent <Ashley Flores 08/16/18 14:37> Amputation: No <FloresAshley stanton 08/16/18 14:37> Fractures: No <Ashley Flores 08/16/18 14:37> Comment: Posttraumatic repair of tendons on the left ankle; bilateral partial knee replacement per Dr. De Souza; bone spur removed from right heel per Dr. Fritz; coronary stent placement 11/16/2015 <Ashley Flores 08/16/18 14:51> - *Social History Educational Level: Completed GED/General Educational Development <Ashley Flores 08/16/18 14:37> Smoking Status: Former smoker <Ashley Flores 08/16/18 14:37> Tobacco Type: cigarettes <Ashley Flores 08/16/18 14:37> # Packs/Day (cigarettes): 1 <Ashley Flores 08/16/18 14:37> #Yrs smoked (if former smoker): 16 <Ashley Flores 08/16/18 14:37> Smoking End Date: 08/30/1984 <Ashley Flores 08/16/18 14:37> Alcohol Intake: never <Ashley Flores 08/16/18 14:37> Alcohol Intake Frequency:: other <Ashley Flores 08/16/18 14:37> Substance Use Type: denies use <Ashley Flores 08/16/18 14:37> Occupational Status: retired <Ashley Flores 08/16/18 14:37> Housing: house <Ashley Flores 08/16/18 14:37> Household Members: family <Ashley Flores 08/16/18 14:37> - Psychiatric History Expresses thoughts of harming self/others: None <FloresAshley 08/16/18 14:37> Suicide Plan Description: No Plan <Ashley Flores 08/16/18 14:37> *Family Hx:: Cancer, Coronary Artery Disease, Heart Attack, Hypertension <Ashley Flores 08/16/18 14:37> Comment: Father at the age of 56 with a heart attack; mother at the age of 67 from a heart attack and also diagnosed with diabetes; one son from drowning. <Ashley Flores 08/16/18 14:51> Review of Systems - Constitutional Denies fever(s), Denies lack of energy <Ashley Flores 08/16/18 15:53> - Eyes Denies change in vision <[facility] 08/16/18 15:53> - ENT Denies ear pain, Denies sore throat <[facility] 08/16/18 15:53> - *Cardiovascular Reports chest pain, Reports chest pain at rest, Reports chest pain with activity, Reports shortness of breath, Denies generalized swelling, Denies i rregular heart rhythm <[facility] 08/16/18 15:53> - *Respiratory Reports cough, Reports shortness of breath, Reports shortness of breath with activity, Denies coughing up blood <[facility] 08/16/18 15:53> - *Gastrointestinal Reports constipation, Reports nausea, Reports vomiting, Denies vomiting blood, Denies bright, red blood in stools <[facility] 08/16/18 15:53> - *Genitourinary Denies difficulty urinating <[facility] 08/16/18 15:53> - *Musculoskeletal Reports joint pain (bilateral knees) <[facility] 08/16/18 15:53> - *Neurologic Denies seizure-like activity, Denies dizziness, Denies headache(s) <[facility] 08/16/18 15:53> Meds Home Medications Medication Instructions Recorded Confirmed Type Acetaminophen 1,000 mg PO BID 08/16/18 08/16/18 History Amlodipine Besylate 5 mg PO DAILY 08/16/18 08/16/18 History Aspirin [Aspirin 81mg chewable 81 mg PO DAILY 08/16/18 08/16/18 History tab] Carvedilol [Carvedilol 6.25mg Tab] 6.25 mg PO BID 08/16/18 08/16/18 History Cyanocobalamin (Vitamin B-12) 1,000 mcg PO DAILY 08/16/18 08/16/18 History [B-12] Diclofenac Sodium [Voltaren 100gm 1 applicatio TP BID 08/16/18 08/16/18 History Topical Gel] Isosorbide Mononitrate [Imdur 30mg 30 mg PO DAILY 08/16/18 08/16/18 History ER tablet] Lisinopril [Lisinopril 20mg Tab] 20 mg PO BID 08/16/18 08/16/18 History Multivit-Min36/Iron/Folic Acid 1 each PO DAILY 08/16/18 08/16/18 History [Geritol Complete Tablet] Nitroglycerin 0.4 mg PO Q5MINP PRN 08/16/18 08/16/18 History Omeprazole [Omeprazole 40mg 40 mg PO DAILY 08/16/18 08/16/18 History Capsule] Ranolazine [Ranexa 500mg ER tablet] 500 mg PO BID 08/16/18 08/16/18 History diphenhydrAMINE HCl [Benadryl] 50 mg PO BID 08/16/18 08/16/18 History <Heath Lugo - 08/16/18 17:32> Allergies Allergy/AdvReac Type Severity Reaction Status Date / Time No Known Allergies Allergy Verified 08/08/18 10:40 <Heath Lugo - 08/16/18 17:32> Exam Vital signs and Labs for Last 24 Hours: Temp Pulse Resp BP Pulse Ox 97.2 F L 62 16 127/73 93 L 08/16/18 16:45 08/16/18 16:45 08/16/18 16:45 08/16/18 16:45 08/16/18 16:45 Laboratory Results - last 24 hr 08/16/18 09:30: WBC 8.4, RBC 5.40, Hgb 14.6, Hct 45.5, MCV 84.2, MCH 27.0, MCHC 32.0, RDW 14.7, Plt Count 249, MPV 7.4, Neut % (Auto) 77.0, Lymph % (Auto) 12.8, [place] % (Auto) 6.4, Eos % (Auto) 3.2, Baso % (Auto) 0.5, Neut # (Auto) 6.4, Lymph # (Auto) 1.1, [place] # (Auto) 0.5, Eos # (Auto) 0.3, Baso # (Auto) 0.0 08/16/18 09:30: Sodium 139, Potassium 4.1, Chloride 102, Carbon Dioxide 25, Anion Gap 16.1 H, BUN 17, Creatinine 1.44 H, Estimated Creat Clear 59, Estimated GFR 49 L, Est GFR ( Amer) 59, Glucose 104, Calcium 9.6, Total Bilirubin 1.2 H, AST 27, ALT 25, Alkaline Phosphatase 144 H, Total Protein 8.9 H, Albumin 3.6, Globulin 5.3 H, Albumin/Globulin Ratio 0.7 L 08/16/18 09:30: Troponin I < 0.02 08/16/18 13:07: Sodium 139, Potassium 4.2, Chloride 103, Carbon Dioxide 27, Anion Gap 13.2, BUN 16, Creatinine 1.34 H, Estimated Creat Clear 98, Estimated GFR 53 L, Est GFR ( Amer) 65, Glucose 108 H, Calcium 8.8 <Heath Lugo - 08/16/18 17:32> Temp Pulse Resp BP Pulse Ox 97.0 F L 64 16 123/79 90 L 08/16/18 14:15 08/16/18 14:15 08/16/18 14:15 08/16/18 14:15 08/16/18 14:15 Laboratory Results - last 24 hr 08/16/18 09:30: WBC 8.4, RBC 5.40, Hgb 14.6, Hct 45.5, MCV 84.2, MCH 27.0, MCHC 32.0, RDW 14.7, Plt Count 249, MPV 7.4, Neut % (Auto) 77.0, Lymph % (Auto) 12.8, [place] % (Auto) 6.4, Eos % (Auto) 3.2, Baso % (Auto) 0.5, Neut # (Auto) 6.4, Lymph # (Auto) 1.1, [place] # (Auto) 0.5, Eos # (Auto) 0.3, Baso # (Auto) 0.0 08/16/18 09:30: Sodium 139, Potassium 4.1, Chloride 102, Carbon Dioxide 25, Anion Gap 16.1 H, BUN 17, Creatinine 1.44 H, Estimated Creat Clear 59, Estimated GFR 49 L, Est GFR ( Amer) 59, Glucose 104, Calcium 9.6, Total Bilirubin 1.2 H, AST 27, ALT 25, Alkaline Phosphatase 144 H, Total Protein 8.9 H, Albumin 3.6, Globulin 5.3 H, Albumin/Globulin Ratio 0.7 L 08/16/18 09:30: Troponin I < 0.02 08/16/18 13:07: Sodium 139, Potassium 4.2, Chloride 103, Carbon Dioxide 27, Anion Gap 13.2, BUN 16, Creatinine 1.34 H, Estimated Creat Clear 98, Estimated GFR 53 L, Est GFR ( Amer) 65, Glucose 108 H, Calcium 8.8 <Ashley Flores - 08/16/18 14:37> I & O for Last 24 hours: Intake & Output 08/14/18 08/15/18 08/16/18 08/17/18 11:59 11:59 11:59 11:59 Intake Total 240 / 240 Balance 240 / 240 Weight 282 lb 282 lb <ParishHeath gonzalez Moses - 08/16/18 17:32> Intake & Output 08/14/18 08/15/18 08/16/18 08/17/18 11:59 11:59 11:59 11:59 Intake Total 240 / 240 Balance 240 / 240 Weight 282 lb 282 lb <Ashley Flores 08/16/18 14:37> - Constitutional no acute distress <Ashley Flores 08/16/18 15:53> Comments: lying in the be; appears comfortable; has completed lunch; wants to know if he can go home <Ashley Flores 08/16/18 15:53> - *Routine HEENT Exam Head: Present: normocephalic, atraumatic <Ashley Flores 08/16/18 15:53> Eye: Present: PERRL. Absent: conjunctival icterus, scleral injection <Ashley Flores 08/16/18 15:53> ENT: Present: oropharynx clear. Absent: mucous membranes moist <Ashley Flores 08/16/18 15:53> Comments: bearded <sAhley Flores 08/16/18 15:53> - *Routine Neck Exam Present: full ROM. Absent: carotid bruit, lymphadenopathy, thyromegaly <[facility] 08/16/18 15:53> - *Routine Respiratory Exam Present: CTA bilaterally (A&P) <[facility] 08/16/18 15:53> - *Routine Cardiovascular Exam Present: RRR <[facility] 08/16/18 15:53> - *Routine Abdominal Exam Present: soft, normoactive bowel sounds. Absent: tenderness, distended, guarding <[facility] 08/16/18 15:53> - *Routine Extremities Exam Absent: edema, calf tenderness <[facility] 08/16/18 15:53> - *Routine Neurological Exam Present: alert, oriented X3 <[facility] 08/16/18 15:53> Assessment and Plan (1) Unstable angina pectoris Current visit: Yes Status: Acute Category: Medical Code(s): I20.0 - Unstable angina (2) History of coronary artery stent placement Current visit: Yes Status: Acute Category: Surgical Code(s): Z95.5 - Presence of coronary angioplasty implant and graft (3) Anemia Current visit: No Status: Acute Qualifiers: Anemia type: unspecified type Qualified Code(s): D64.9 - Anemia, unspecified Category: Medical Code(s): D64.9 - Anemia, unspecified (4) HBP (high blood pressure) Current visit: No Status: Acute Qualifiers: Hypertension type: essential hypertension Qualified Code(s): I10 - Essential (primary) hypertension Category: Medical Code(s): I10 - Essential (primary) hypertension (5) CAD (coronary artery disease) Current visit: No Status: Chronic Qualifiers: Coronary Disease-Associated Artery/Lesion type: [place] artery [place] vs. transplanted heart: [place] heart Associated angina: with stable angina Qualified Code(s): I25.118 - Atherosclerotic heart disease of [place] coronary artery with other forms of angina pectoris Category: Medical Code(s): I25.10 - Atherosclerotic heart disease of [place] coronary artery without angina pectoris (6) Hyperlipidemia Current visit: No Status: Chronic Qualifiers: Hyperlipidemia type: other hyperlipidemia Qualified Code(s): E78.49 - Other hyperlipidemia; E78.4 - Other hyperlipidemia Category: Medical Code(s): E78.5 - Hyperlipidemia, unspecified <Heath Lugo - 08/16/18 17:32> (1) Unstable angina pectoris Current visit: Yes Status: Acute Category: Medical Code(s): I20.0 - Unstable angina (2) History of coronary artery stent placement Current visit: Yes Status: Acute Category: Surgical Code(s): Z95.5 - Presence of coronary angioplasty implant and graft (3) Anemia Current visit: No Status: Acute Qualifiers: Anemia type: unspecified type Qualified Code(s): D64.9 - Anemia, unspecified Category: Medical Code(s): D64.9 - Anemia, unspecified (4) HBP (high blood pressure) Current visit: No Status: Acute Qualifiers: Hypertension type: essential hypertension Qualified Code(s): I10 - Essential (primary) hypertension Category: Medical Code(s): I10 - Essential (primary) hypertension (5) CAD (coronary artery disease) Current visit: No Status: Chronic Qualifiers: Coronary Disease-Associated Artery/Lesion type: [place] artery [place] vs. transplanted heart: [place] heart Associated angina: with stable angina Qualified Code(s): I25.118 - Atherosclerotic heart disease of [place] coronary artery with other forms of angina pectoris Category: Medical Code(s): I25.10 - Atherosclerotic heart disease of [place] coronary artery without angina pectoris (6) Hyperlipidemia Current visit: No Status: Chronic Qualifiers: Hyperlipidemia type: other hyperlipidemia Qualified Code(s): E78.49 - Other hyperlipidemia; E78.4 - Other hyperlipidemia Category: Medical Code(s): E78.5 - Hyperlipidemia, unspecified <Ashley Flores - 08/16/18 15:42> - Assessment and plan all Dx Assessment and Plan for all problems:: Patient seen and examined this AM. He denies chest pain at present time. Heart cath results noted. Will observe overnight ane likely discharge home tomorrow. <Heath Lugo - 08/16/18 17:32> Has had cardiac cath and has been admitted for observation; will follow plan as per cardiolgy <Ashley Flores - 08/16/18 15:53>
--- NOTE | 2018-08-17 07:39 | Pharmacy Consult Notes ---
[facility] Pharmacy VTE Monitoring - Patient Demographics Admission date: 08/16/18 Report Date: 08/17/18 Time: 07:38 Allergies/Adverse Reactions: Patient Allergies No Known Allergies Allergy (Verified 08/08/18 10:40) Height: 1.78 m Weight: 127.913 kg Patient Problems: Current Active Problems Unstable angina pectoris (Acute) History of coronary artery stent placement (Acute) Chest pain (Acute) - VTE Risk Labs: VTE Related Lab Results Hgb 14.6 g/dL (14.1-18.0) 08/16/18 09:30 Hct 45.5 % (42.0-52.0) 08/16/18 09:30 Plt Count 249 K/mm3 (142-424) 08/16/18 09:30 BUN 16 mg/dL (7-18) 08/16/18 13:07 Creatinine 1.34 mg/dL (0.70-1.30) H 08/16/18 13:07 Estimated Creat Clear 98 mL/min (50-200) 08/16/18 13:07 Was VTE Risk Assessment Performed: Yes VTE Score: 1 VTE Risk Level: Low Risk Clinical Trial Participant: No - Prophylaxis VTE Prophylaxis Ordered?: Yes Types of VTE Prophylaxis: TEDS Knee High
--- NOTE | 2018-08-17 07:58 | Progress Note ---
<Ashley Flores - Last Filed: 08/17/18 07:55> Internal Medicine - PN: Subj *Date: 08/17/18 *Time: 07:55 Interval history: Patient is ready to go home. He denies chest pain and shortness of breath. He states he slept well. He is eating without difficulty. He has ambulated to the bathroom without any problems. He voided several times during the night. Right wrist is doing well at site of cath. Exam Vital signs and Labs for Last 24 Hours: Temp Pulse Resp BP Pulse Ox 97.7 F 75 18 127/80 92 L 08/17/18 04:00 08/17/18 04:00 08/17/18 04:00 08/17/18 04:00 08/17/18 04:00 Laboratory Results - last 24 hr 08/16/18 09:30: WBC 8.4, RBC 5.40, Hgb 14.6, Hct 45.5, MCV 84.2, MCH 27.0, MCHC 32.0, RDW 14.7, Plt Count 249, MPV 7.4, Neut % (Auto) 77.0, Lymph % (Auto) 12.8, [place] % (Auto) 6.4, Eos % (Auto) 3.2, Baso % (Auto) 0.5, Neut # (Auto) 6.4, Lymph # (Auto) 1.1, [place] # (Auto) 0.5, Eos # (Auto) 0.3, Baso # (Auto) 0.0 08/16/18 09:30: Sodium 139, Potassium 4.1, Chloride 102, Carbon Dioxide 25, Anion Gap 16.1 H, BUN 17, Creatinine 1.44 H, Estimated Creat Clear 59, Estimated GFR 49 L, Est GFR ( Amer) 59, Glucose 104, Calcium 9.6, Total Bilirubin 1.2 H, AST 27, ALT 25, Alkaline Phosphatase 144 H, Total Protein 8.9 H, Albumin 3.6, Globulin 5.3 H, Albumin/Globulin Ratio 0.7 L 08/16/18 09:30: Troponin I < 0.02 08/16/18 13:07: Sodium 139, Potassium 4.2, Chloride 103, Carbon Dioxide 27, Anion Gap 13.2, BUN 16, Creatinine 1.34 H, Estimated Creat Clear 98, Estimated GFR 53 L, Est GFR ( Amer) 65, Glucose 108 H, Calcium 8.8 I & O for Last 24 hours: Intake & Output 08/14/18 08/15/18 08/16/18 08/17/18 11:59 11:59 11:59 11:59 Intake Total 720 / 720 Balance 720 / 720 Weight 282 lb 282 lb - Constitutional no acute distress Comments: Sitting on bedside eating his breakfast. - *Routine Respiratory Exam Comments: Few basilar crackles bilaterally - *Routine Cardiovascular Exam Present: RRR - *Routine Abdominal Exam Present: soft, normoactive bowel sounds. Absent: tenderness - *Routine Extremities Exam Absent: edema - *Routine Neurological Exam Present: alert, oriented X3 Assessment and Plan (1) Unstable angina pectoris Current visit: Yes Status: Acute Category: Medical Code(s): I20.0 - Unstable angina (2) History of coronary artery stent placement Current visit: Yes Status: Acute Category: Surgical Code(s): Z95.5 - Presence of coronary angioplasty implant and graft (3) Anemia Current visit: No Status: Acute Qualifiers: Anemia type: unspecified type Qualified Code(s): D64.9 - Anemia, unspecified Category: Medical Code(s): D64.9 - Anemia, unspecified (4) HBP (high blood pressure) Current visit: No Status: Acute Qualifiers: Hypertension type: essential hypertension Qualified Code(s): I10 - Essential (primary) hypertension Category: Medical Code(s): I10 - Essential (primary) hypertension (5) CAD (coronary artery disease) Current visit: No Status: Chronic Qualifiers: Coronary Disease-Associated Artery/Lesion type: [place] artery [place] vs. transplanted heart: [place] heart Associated angina: with stable angina Qualified Code(s): I25.118 - Atherosclerotic heart disease of [place] coronary artery with other forms of angina pectoris Category: Medical Code(s): I25.10 - Atherosclerotic heart disease of [place] coronary artery without angina pectoris (6) Hyperlipidemia Current visit: No Status: Chronic Qualifiers: Hyperlipidemia type: other hyperlipidemia Qualified Code(s): E78.49 - Other hyperlipidemia; E78.4 - Other hyperlipidemia Category: Medical Code(s): E78.5 - Hyperlipidemia, unspecified - Assessment and plan all Dx Assessment and Plan for all problems:: Patient will probably be discharged today. Meds as per cardiology. <Parish,Heath Lopes - Last Filed: 08/17/18 10:04> Exam Vital signs and Labs for Last 24 Hours: Temp Pulse Resp BP Pulse Ox 98.6 F 74 17 137/78 92 L 08/17/18 08:00 08/17/18 08:00 08/17/18 08:00 08/17/18 08:00 08/17/18 08:00 Laboratory Results - last 24 hr 08/16/18 09:30: Troponin I < 0.02 08/16/18 13:07: Sodium 139, Potassium 4.2, Chloride 103, Carbon Dioxide 27, Anion Gap 13.2, BUN 16, Creatinine 1.34 H, Estimated Creat Clear 98, Estimated GFR 53 L, Est GFR ( Amer) 65, Glucose 108 H, Calcium 8.8 I & O for Last 24 hours: Intake & Output 08/14/18 08/15/18 08/16/18 08/17/18 11:59 11:59 11:59 11:59 Intake Total 1080 / 1080 Balance 1080 / 1080 Weight 282 lb 282 lb Assessment and Plan (1) Unstable angina pectoris Current visit: Yes Status: Acute Category: Medical Code(s): I20.0 - U nstable angina (2) History of coronary artery stent placement Current visit: Yes Status: Acute Category: Surgical Code(s): Z95.5 - Presence of coronary angioplasty implant and graft (3) Anemia Current visit: No Status: Acute Qualifiers: Anemia type: unspecified type Qualified Code(s): D64.9 - Anemia, unspecified Category: Medical Code(s): D64.9 - Anemia, unspecified (4) HBP (high blood pressure) Current visit: No Status: Acute Qualifiers: Hypertension type: essential hypertension Qualified Code(s): I10 - Essential (primary) hypertension Category: Medical Code(s): I10 - Essential (primary) hypertension (5) CAD (coronary artery disease) Current visit: No Status: Chronic Qualifiers: Coronary Disease-Associated Artery/Lesion type: [place] artery [place] vs. transplanted heart: [place] heart Associated angina: with stable angina Qualified Code(s): I25.118 - Atherosclerotic heart disease of [place] coronary artery with other forms of angina pectoris Category: Medical Code(s): I25.10 - Atherosclerotic heart disease of [place] coronary artery without angina pectoris (6) Hyperlipidemia Current visit: No Status: Chronic Qualifiers: Hyperlipidemia type: other hyperlipidemia Qualified Code(s): E78.49 - Other hyperlipidemia; E78.4 - Other hyperlipidemia Category: Medical Code(s): E78.5 - Hyperlipidemia, unspecified - Assessment and plan all Dx Assessment and Plan for all problems:: Patient seen and examined. Will plan for discharge today after clarification of his discharge meds with cardiology.
--- NOTE | 2018-08-17 10:12 | Progress Note ---
<Brooklyn Swartz - Last Filed: 08/17/18 10:09> Subjective Date: 08/17/18 Time: 10:09 Principal diagnosis: angina pectoris Interval history: Pt was admitted with CP. Underwent LHC yesterday. CAD was patent. pt had elevated LVEDP. Started him diuretics yesterday and symptoms have improved. Stopped norvasc, Imdur, and Ranexa. Added Coreg, Lasix and kept him on Lisinopril. Doing well today. Denies CP or pressure. No SOB or edema. No fever, chills, N/V/D, PND or orthopnea. Exam Vital signs and Labs for Last 24 Hours: Temp Pulse Resp BP Pulse Ox 98.6 F 74 17 137/78 92 L 08/17/18 08:00 08/17/18 08:00 08/17/18 08:00 08/17/18 08:00 08/17/18 08:00 Laboratory Results - last 24 hr 08/16/18 09:30: Troponin I < 0.02 08/16/18 13:07: Sodium 139, Potassium 4.2, Chloride 103, Carbon Dioxide 27, Anion Gap 13.2, BUN 16, Creatinine 1.34 H, Estimated Creat Clear 98, Estimated GFR 53 L, Est GFR ( Amer) 65, Glucose 108 H, Calcium 8.8 I & O for Last 24 hours: Intake & Output 08/14/18 08/15/18 08/16/18 08/17/18 23:59 23:59 23:59 23:59 Intake Total 480 / 480 600 / 600 Balance 480 / 480 600 / 600 Weight 282 lb 282 lb - Constitutional no acute distress, obese - *Routine HEENT Exam Head: Present: normocephalic, atraumatic Eye: Present: normal accommodation, conjunctivae pink ENT: Present: mucous membranes moist, nares patent, external ear normal - *Routine Neck Exam Present: supple, full ROM, normal carotid upstroke. Absent: JVD, carotid bruit, lymphadenopathy - *Routine Respiratory Exam Present: CTA bilaterally Comments: lungs are clear to auscultation bilaterally. good inspiratory and expiratory effort. no distress. - *Routine Cardiovascular Exam Present: RRR, Normal S1, Normal S2. Absent: murmur, gallop, rubs - *Routine Abdominal Exam Present: soft, normoactive bowel sounds. Absent: tenderness, distended, organomegaly, mass, bruit - *Routine Extremities Exam Absent: cyanosis, clubbing, edema Comments: 2+ radia, and pedal pulses bilaterally - *Routine Skin Exam Present: intact, dry, warm. Absent: cyanosis - *Routine Neurological Exam Present: alert, oriented X3, CN II-XII intact - Routine Psychiatric Exam Present: normal affect, normal thought process Progress Note: A&P (1) CAD (coronary artery disease) Status: Chronic (2) Unstable angina pectoris Status: Resolved (3) History of coronary artery stent placement Status: Chronic (4) Anemia Status: Acute (5) HBP (high blood pressure) Status: Chronic (6) Hyperlipidemia Status: Chronic (7) CKD (chronic kidney disease) stage 2, GFR 60-89 ml/min Status: Acute Assessment and Plan for All Diagnoses:: Plan: 1. CAD is stable. Denies CP or pressure. 2. BP is well controlled 3. LDL goal is <55. 4. Cr 1.3 and stable. 5. Stopped Norvasc, Ranexa and Imdur. 6. started Lasix 20 mg daily for diuresis due to elevated LVEDP. 7. Continue Lisinopril and Coreg. 8. Cath site healing well. no hematoma. 9. Pt is stable for discharge home today from a CV standpoint 10. f/u in 1-2 weeks on an outpatient basis. Thank you for the opportunity to help participate in the care of this patient. <Ramses García - Last Filed: 08/17/18 11:18> Exam Vital signs and Labs for Last 24 Hours: Temp Pulse Resp BP Pulse Ox 98.6 F 74 17 137/78 92 L 08/17/18 08:00 08/17/18 08:00 08/17/18 08:00 08/17/18 08:00 08/17/18 08:00 Laboratory Results - last 24 hr 08/16/18 13:07: Sodium 139, Potassium 4.2, Chloride 103, Carbon Dioxide 27, Anion Gap 13.2, BUN 16, Creatinine 1.34 H, Estimated Creat Clear 98, Estimated GFR 53 L, Est GFR ( Amer) 65, Glucose 108 H, Calcium 8.8 I & O for Last 24 hours: Intake & Output 1208/15/18 08/16/18 08/17/18 11:59 11:59 11:59 11:59 Intake Total 1080 / 1080 Balance 1080 / 1080 Weight 282 lb 282 lb Progress Note: A&P (1) CAD (coronary artery disease) Status: Chronic (2) Unstable angina pectoris Status: Resolved (3) History of coronary artery stent placement Status: Chronic (4) Anemia Status: Acute (5) HBP (high blood pressure) Status: Chronic (6) Hyperlipidemia Status: Chronic (7) CKD (chronic kidney disease) stage 2, GFR 60-89 ml/min Status: Acute Assessment and Plan for All Diagnoses:: Physician Attestation I have discussed the above patient, assessment, and plan with the GLASS ETCHER and agree with the assessment and plan.
--- NOTE | 2018-08-18 22:20 | Discharge Summary ---
General - General Admission date:: 08/16/18 <Heath Lugo - 09/03/18 09:19> 08/16/18 <Renee Vila - 08/18/18 22:20> Discharge date: 08/17/18 <Renee Vila - 08/18/18 22:20> HPI HPI: Mr. Heck is a 68-year-old male with a history of ASCVD and degenerative joint disease who presented to [facility] complaining of chest pain. He described the pain as starting about 7 PM last night in his left anterior chest without radiation. His breathing was at baseline. He denied new shortness of breath, diaphoresis and nausea. He took 2 nitroglycerin which diminished the pain but did not completely relieve it. He was able to sleep but awakened this a.m. and the pain was still there although not as severe. The pain then resolved for a few hours but then became intermittent lasting a couple of minutes. Thus he presented to the ER. In the emergency room he was pain-free. He was noted to have a previous history of an SD and stent placement in [place] by Dr. García 2 years ago.. He had taken 81 mg of aspirin this morning. Patient was seen by cardiology in the ER who noted office visit with the same symptoms while on 4 anti-anginal medications. Patient stated to cardiology that the symptoms were reminiscent of prior angina and subsequent stent placement. Cardiology was in the process of scheduling a left heart cath but were awaiting confirmation of transportation. EKG was noted sinus rhythm without acute changes. Patient was taken directly to the Crate Rep[facility] from the emergency room. Left heart cath with the following results: IMPRESSION: 1. Widely proximal LAD stent 2. Normal ejection fraction 3. Elevated LVEDP which is the likely etiology for patient's associated symptoms PLAN: 1. Patient remains on 4 antianginal medications. Avoidance of tobacco products would be highly beneficial. 2. Diuretics in order to decrease LVEDP with likely improved patient's class IV angina 3. Physical therapy with aggressive risk factor modification Patient was then admitted to acute care for observation after the cath. <Renee Vila - 08/18/18 22:20> Hospital Course Hospital Course: The patient was kept for observation after his heart cath. By the next day, he felt well and was ready to go home. He denied chest pain and shortness of breath. He slept well. He was eating without difficulty. He had ambulated to the bathroom without any problems. Cardiology felt he was stable to be discharged. They stopped his norvasc, Imdur, and Ranexa. They added Coreg, Lasix and kept him on Lisinopril. They wanted to f/u in 1-2 weeks with the patient. <Renee Vila - 08/18/18 22:20> Objective Vital signs: Temp Pulse Resp BP Pulse Ox 98.6 F 74 17 137/78 92 L 08/17/18 08:00 08/17/18 08:00 08/17/18 08:00 08/17/18 08:00 08/17/18 08:00 <ParishHeath gonzalez Moses - 09/03/18 09:19> Temp Pulse Resp BP Pulse Ox 98.6 F 74 17 137/78 92 L 08/17/18 08:00 08/17/18 08:00 08/17/18 08:00 08/17/18 08:00 08/17/18 08:00 <Renee Vila - 08/18/18 22:20> Narrative: - Constitutional no acute distress Comments: lying in the be; appears comfortable; has completed lunch; wants to know if he can go home - *Routine HEENT Exam Head: Present: normocephalic, atraumatic Eye: Present: PERRL. Absent: conjunctival icterus, scleral injection ENT: Present: oropharynx clear. Absent: mucous membranes moist Comments: bearded - *Routine Neck Exam Present: full ROM. Absent: carotid bruit, lymphadenopathy, thyromegaly - *Routine Respiratory Exam Present: CTA bilaterally (A&P) - *Routine Cardiovascular Exam Present: RRR - *Routine Abdominal Exam Present: soft, normoactive bowel sounds. Absent: tenderness, distended, guarding - *Routine Extremities Exam Absent: edema, calf tenderness - *Routine Neurological Exam Present: alert, oriented X3 <Renee Vila - 08/18/18 22:20> DS: Diagnosis - Discharge Diagnosis (1) CAD (coronary artery disease) Status: Chronic (2) Unstable angina pectoris Status: Resolved (3) History of coronary artery stent placement Status: Chronic (4) Anemia Status: Acute (5) HBP (high blood pressure) Status: Chronic (6) Hyperlipidemia Status: Chronic (7) CKD (chronic kidney disease) stage 2, GFR 60-89 ml/min Status: Acute <Renee Vila - 08/18/18 22:14> (1) CAD (coronary artery disease) Status: Chronic (2) Unstable angina pectoris Status: Resolved (3) History of coronary artery stent placement Status: Chronic (4) Anemia Status: Chronic (5) HBP (high blood pressure) Status: Chronic (6) Hyperlipidemia Status: Chronic (7) CKD (chronic kidney disease) stage 2, GFR 60-89 ml/min Status: Chronic <Heath Lugo - 09/03/18 09:19> Discharge Plan - Patient Discharge Instructions ACTIVITY: Continue current activity <Renee Vila - 08/18/18 22:20> DIET: cardiac <Renee Vila - 08/18/18 22:20> Patient Instructions: DI for Cardiac Catheterization, DI for Surgical Site Infection, DI for Chest Pain <Heath Lugo - 09/03/18 09:19> Forms: <Heath Lugo - 09/03/18 09:19> - Follow up Plan Follow up with: Heath Lugo MD [Staff Physician] - 2 weeks Ramses García MD [Staff Physician] - 1 week <Heath Lugo - 09/03/18 09:19> Disposition: Home, Self-Care <Heath Lugo - 09/03/18 09:19> Home Medications: Home Medications Medication Instructions Recorded Confirmed Type RX: Acetaminophen 1,000 mg PO BID 08/16/18 08/31/18 History RX: Aspirin [Aspirin 81mg chewable 81 mg PO DAILY 08/16/18 08/31/18 History tab] RX: Carvedilol [Carvedilol 6.25mg 6.25 mg PO BID 08/16/18 08/31/18 History Tab] RX: Cyanocobalamin (Vitamin B-12) 1,000 mcg PO DAILY 08/16/18 08/31/18 History [B-12] RX: Diclofenac Sodium [Voltaren 1 applicatio TP BID 08/16/18 08/31/18 History 100gm Topical Gel] RX: Lisinopril [Lisinopril 20mg 20 mg PO BID 08/16/18 08/31/18 History Tab] RX: Multivit-Min36/Iron/Folic Acid 1 each PO DAILY 08/16/18 08/31/18 History [Geritol Complete Tablet] RX: Nitroglycerin 0.4 mg PO Q5MINP PRN 08/16/18 08/31/18 History RX: diphenhydrAMINE HCl [Benadryl] 50 mg PO BID 08/16/18 08/31/18 History RX: Furosemide [Lasix 20mg tablet] 20 mg PO DAILY #30 tab 08/17/18 08/31/18 Rx spironolactone 25 mg tablet 25 mg PO DAILY #30 tab 08/31/18 08/31/18 Rx omeprazole 40 mg capsule,delayed 40 mg PO DAILY #30 cap 09/02/18 Rx release <Heath Lugo - 09/03/18 09:19> Prescriptions/Medication Reconciliation: New RX: Furosemide [Lasix 20mg tablet] 20 mg PO DAILY #30 tab Continue RX: Lisinopril [Lisinopril 20mg Tab] 20 mg PO BID RX: Carvedilol [Carvedilol 6.25mg Tab] 6.25 mg PO BID RX: Aspirin [Aspirin 81mg chewable tab] 81 mg PO DAILY RX: Multivit-Min36/Iron/Folic Acid [Geritol Complete Tablet] 1 each PO DAILY RX: diphenhydrAMINE HCl [Benadryl] 50 mg PO BID RX: Diclofenac Sodium [Voltaren 100gm Topical Gel] 1 applicatio TP BID RX: Cyanocobalamin (Vitamin B-12) [B-12] 1,000 mcg PO DAILY RX: Acetaminophen 1,000 mg PO BID RX: Nitroglycerin 0.4 mg PO Q5MINP PRN PRN Reason: Chest Pain Discontinued Ranolazine [Ranexa 500mg ER tablet] 500 mg PO BID Isosorbide Mononitrate [Imdur 30mg ER tablet] 30 mg PO DAILY RX: Amlodipine Besylate 5 mg PO DAILY No Action spironolactone 25 mg tablet 25 mg PO DAILY #30 tab omeprazole 40 mg capsule,delayed release 40 mg PO DAILY #30 cap <Heath Lugo - 09/03/18 09:19> - Additional Information Additional Information: Concur with plan for discharge <Heath Lugo - 09/03/18 09:19>
== END 2018-08-17 10:40 | disposition home or self-care (01) ==
LOC: 2ND 09:19 → ER 09:19 → 2ND 11:47
PROVIDERS: ADMIT Family Medicine; ATTEND Family Medicine
DX: I25.110 Atherosclerotic heart disease of native coronary artery with unstable angina pectoris; Z87.891 Personal history of nicotine dependence; I25.2 Old myocardial infarction; D64.9 Anemia, unspecified; N18.2 Chronic kidney disease, stage 2 (mild); R06.09 Other forms of dyspnea; E78.49 Other hyperlipidemia; I12.9 Hypertensive chronic kidney disease with stage 1 through stage 4 chronic kidney disease, or unspecified chronic kidney disease; Z95.5 Presence of coronary angioplasty implant and graft; Z23 Encounter for immunization
CPT/HCPCS: 36415; 71010; 71045; 80048; 80053; 84484; 85025; 90686; 93005; 93458; 99152; 99285; C1725; C1760; C1769; G0378; J1644; Q9967

== ENCOUNTER → 2018-09-02 16:34 | Outpatient (CLI) | payer MEDICARE, SELFPAY ==
--- NOTE | 2018-09-02 16:46 | XR_ITS ---
XR chest 2V HISTORY: ITS.REASON: RESPIRATORY CRACKLES AT BOTH LUNG BASES ORDERING PHYSICIAN: MICHAEL King PATIENT AGE: 68 years COMPARISON: 08/16/2018 FINDINGS: Unremarkable cardiovascular structures. COPD with chronic changes in the lung bases. Increased density is present in the right lung base may be due to an area of infiltrate. Recommend follow-up until clear. Summation artifact is also a consideration. No acute bony findings. IMPRESSION: COPD with chronic change. Increased density right lower lobe medially which could be due to an area of atelectasis or infiltrate. Cannot exclude a pulmonary nodule. Follow-up suggested. If this persists, CT may be needed for further evaluation
== END ==
PROVIDERS: PCP Family Medicine; Visit Provider Physician Assistant
DX: R09.89 Other specified symptoms and signs involving the circulatory and respiratory systems (principal)
CPT/HCPCS: 71046

== ENCOUNTER → 2018-09-12 12:35 | Outpatient (CLI) | payer MEDICARE, SELFPAY ==
--- NOTE | 2018-09-12 12:36 | CA_ITS ---
PROCEDURE: 2-D M-mode and color Doppler study INDICATIONS FOR THE TEST: Chest pain+ COPD Heart Murmur Tobacco Smoking Palpitations Fatigue Syncope Edema Hypertension Diabetes Mellitus Rheumatic Fever SOB+ALEMAN Obesity+Hyperlipidemia Family History HD Additional History stent,cad,abn ekg,bradycardia PATIENT INFORMATION HEIGHT: 71 WEIGHT:289 GENDER: Male B/P:111/74 2-D/M-MODE INTERPRETATION: 2-D MEASUREMENTS OBSERVED VALUES IN CMS Right Ventricular Dimension (RVDd) 2.9 Interventricular Septum (Thickness)(IVsd) 1.0 Left Ventricular Internal Dimensions(LVIDd) 5.3 Left Ventricular Posterior Wall (Thickness)(LVPWd) 1.0 Aortic Root 3.2 Aortic Cusp Separation 2.0 Left Atrial Dimensions (LAD) 4.3 2D 1. Left atrium is mildly enlarged, left ventricle is normal size, there is no concentric left ventricular hypertrophy, visually estimated ejection fraction 50% with no regional wall motion abnormality. 2. The right atrium and right ventricle are moderately enlarged with normal contractility. 3. The aortic valve is thickened and calcified leaflet continue to display good mobility. 4. The mitral and tricuspid valve leaflets are minimally thickened 5. The pulmonic valve is poorly visualized. 6. No significant pericardial effusion noted. DOPPLER INTERROGATION: Doppler interrogation of the aortic, mitral and tricuspid presence of mild aortic, mild mitral and tricuspid agitation, tricuspid regurgitation jet velocity is inadequate for calculation of the right ventricular systolic pressure, diastolic parameters are inconclusive. CONCLUSION: 1. Technically difficult and poor study. 2. Mildly enlarged left atrium, normal left ventricular size, visually estimated ejection fraction 50% with no regional wall motion abnormality, diastolic parameters are inconclusive. 3. Moderately enlarged right ventricle with normal contractility. 4. Mild aortic, mild mitral and tricuspid regurgitation 5. No significant pericardial effusion noted.
== END ==
PROVIDERS: PCP Family Medicine; Visit Provider Internal Medicine Cardiovascular Disease
DX: R06.09 Other forms of dyspnea; R07.9 Chest pain, unspecified; D64.9 Anemia, unspecified; E78.49 Other hyperlipidemia; I25.118 Atherosclerotic heart disease of native coronary artery with other forms of angina pectoris; N18.2 Chronic kidney disease, stage 2 (mild)
CPT/HCPCS: 93306

== ENCOUNTER → 2018-09-14 09:25 | Outpatient (CLI) | payer MEDICARE, SELFPAY ==
--- NOTE | 2018-09-14 09:35 | CT_ITS ---
CT chest w con HISTORY: Abnormal chest x-ray, solitary pulmonary nodule, abnormal breath sounds ITS.REASON: ABNORMAL CXR ORDERING PHYSICIAN: Bebe Mcgrath MD PATIENT AGE: 68 years COMPARISON: 09/16/2017 TECHNIQUE: Axial images obtained following the administration of 75 mL of Isovue 370 . Sagittal, and coronal reformatted images are also generated and reviewed. All CT scans at the facility use one or more dose reduction, viz: automated exposure control, ma/kV adjustment per patient size (including targeted exams where dose is matched to indication, i.e. head), or iterative reconstruction technique. FINDINGS: The isthmus of the thyroid gland is somewhat prominent. There are a few small nodes within the mediastinum with the largest mahamed conglomerate at 2.7 x 2.6 cm similar to the previous exam there are scattered pulmonary fibrotic changes with fibrosis in the right upper lobe anteriorly and within the lingula inferiorly. Pulmonary fibrotic changes are present also in the lung bases. There is mild bronchial thickening. Abnormality noted on the radiograph is likely related to pulmonary fibrotic changes noted in the right lung base. There are some small nodes in the right hilum as well which may to this radiographic abnormality. Small nodes are present in the left hilum as well. These are not significantly changed These findings however not significant changed. There is a 7 mm noncalcified nodule in the left lower lobe in the perihilar region which is unchanged. No new nodules are evident. No evidence of aortic aneurysm or central pulmonary embolus. Coronary artery calcifications are present Upper abdominal images M and straight a hypodense lesion in the left lobe of the liver posteriorly at 2 cm unchanged. There are gallstones present. Stones are present also within a phrygian cap. IMPRESSION: 1. Overall no significant change from 09/16/2017. Pulmonary fibrotic changes are noted as previously described. Radiographic abnormality is felt to be related to combination of pulmonary fibrosis and right hilar adenopathy. 2. No significant change in the mediastinal and mild hilar adenopathy 3. Stable left perihilar nodule 7 mm. 4. Cholelithiasis
== END ==
PROVIDERS: PCP Family Medicine; Visit Provider Family Medicine
DX: R93.89 Abnormal findings on diagnostic imaging of other specified body structures (principal)
CPT/HCPCS: 71260; Q9967

== ENCOUNTER → 2019-02-09 07:03 | Outpatient (CLI) | payer MEDICARE, SELFPAY ==
--- NOTE | 2019-02-09 07:05 | NM_ITS ---
CARDIOLITE SPECT MYOCARDIAL PERFUSION LEXISCAN, REST AND STRESS: History: Coronary artery disease, hypertension, family history, chest pain, shortness of breath and fatigue Procedure: Patient received a 0.4 mg of intravenous Lexiscan, resting heart rate was 69 bpm resting blood pressure 118/70, with Lexiscan maximum heart rate achieved was 88 bpm which is less than 85% of the maximum predicted heart rate and a blood pressure was 121/62. With Lexiscan patient complained shortness of breath Electrocardiogram: Resting electrocardiogram showed sinus rhythm right ventricular conduction delay, with Lexiscan less than 1.5 ST segment depression from the baseline EKG. The EKG portion of the Lexiscan Myoview is nondiagnostic. Cardiac stress and resting SPECT images: Cardiac stress and resting SPECT images were obtained using technetium 99 Myoview 29.9 mCi stress and 10.7 mCi at rest. Gated SPECT further analysis of segmental wall motion and calculation of the ejection fraction also done. Cardiac stress and resting SPECT images show mild decreased tracer activity in the inferolateral wall expansion with normal contractility in the gated SPECT is likely secondary to soft tissue attenuation, no reversible ischemia seen, computer derived ejection fraction is 64% with no regional wall motion abnormality, right ventricle is normal size and contractility. Conclusion: 1. The EKG portion of the Lexiscan Myoview is nondiagnostic. 2. No scintigraphic evidence of reversible ischemia seen, computer derived ejection fraction 64% with no regional wall motion abnormality, right ventricle is normal size and contractility. 3. Normal Lexiscan Myoview study.
--- NOTE | 2019-02-09 12:55 | HMH.ITSHM ---
Current Home Medications as stated by this patient Heath Heck or group sales representative. [] nitro furosemide atorvastin omprezole lisinopril carvedilol asa spiraonlactone
== END ==
PROVIDERS: PCP Family Medicine; Visit Provider Internal Medicine
DX: R06.02 Shortness of breath (principal); R07.9 Chest pain, unspecified
CPT/HCPCS: 78452; 93017; A9502; J2785

== ENCOUNTER → 2019-03-07 14:41 | Outpatient (POV) | payer MEDICARE, SELFPAY | PROVIDERS: Visit Provider Internal Medicine | DX: Z00.00 Encounter for general adult medical examination without abnormal findings (principal) ==

== ENCOUNTER → 2019-03-20 10:41 | Outpatient (CLI) | payer MEDICARE, SELFPAY ==
[2019-03-24 15:01] LABS: QuantiFERON-TB Gold Plus Positive (Negative)
== END ==
PROVIDERS: Visit Provider Internal Medicine
DX: A15.0 Tuberculosis of lung (principal)
CPT/HCPCS: 36415; 86480

== ENCOUNTER → 2019-04-05 12:42 | Outpatient (CLI) | payer MEDICARE, SELFPAY ==
[2019-04-05 13:40] VITALS: PULSE 81; PULSE 85
== END ==
PROVIDERS: Visit Provider Internal Medicine
DX: J84.9 Interstitial pulmonary disease, unspecified (principal)
CPT/HCPCS: 94060; 94618; 94640; 94726; 94729

== ENCOUNTER → 2019-04-11 14:27 | Outpatient (POV) | payer MEDICARE, SELFPAY | PROVIDERS: Visit Provider Internal Medicine | DX: Z00.00 Encounter for general adult medical examination without abnormal findings (principal) ==

== ENCOUNTER 2020-03-24 04:14 | Observation (INO) | payer MEDICARE, SELFPAY ==
[2020-03-24] VITALS (15 sets, daily range): BP systolic 99–126; BP diastolic 58–86; PULSE 60–80; RESP 16–20; TEMP 36.6–36.8; O2SAT 90–96; BMI 40.0; BMI 42.8
--- NOTE | 2020-03-24 04:09 | ECG_ITS ---
APPROVED REPORT Exam: Resting ECG HR:67 bpm ECG Measurements Heart Rate 67 AXES NH 146 P 37 QRSd 76 QRS 89 QT 390 T 28 QTc 412 <Conclusion> Normal sinus rhythm with sinus arrhythmia Incomplete RBBB Otherwise a Normal ECG Electronically signed by : Yo Meeks, 03/25/2020 09:07:28
--- NOTE | 2020-03-24 04:35 | XR_ITS ---
PROCEDURE: XR CHEST PORTABLE CLINICAL HISTORY: chest pain COMPARISON: CXR1VP XR chest portable from 08/16/2018 CXR2V XR chest 2V from 09/02/[address] chest w con from 09/14/2018 Chest from 01/22/2019 FINDINGS: The cardiomediastinal silhouette and pulmonary vascularity are within normal limits. The lung lewis are fairly well expanded. There is partial silhouetting of the left heart border when compared to previous studies and minimal infiltrate in the lingula cannot be excluded. The left upper lung field and right lung lewis are clear. There is no definite pleural fluid. IMPRESSION: Possible lingular infiltrate, suggest clinical correlation and may be helpful to have a follow-up PA and lateral chest for better evaluation. Dictated by: Dr. Alfonso Burgess MD 03/24/2020 07:[address] Alfonso Burgess MD in [place] 03/24/2020 07:51
[2020-03-24 04:39] LABS: Basophils % 0.2 % (0.1-2.0); Eosinophils % 0.3 % (0.1-12.0); Hematocrit 43.4 % (42.0-52.0); Hemoglobin 14.1 g/dL (14.1-18.0); Lymphocytes # 1.3 K/mm3 (0.7-4.5); Lymphocytes % 10.4 % (10-50); Mean Corpuscular HGB Conc 32.4 g/dL (31.8-35.4); Mean Corpuscular Hemoglobin 26.5 pg (27.0-31.2); Mean Corpuscular Volume 81.6 fl (80-94); Mean Platelet Volume 7.6 fl (7.4-10.4); Monocytes # 0.8 K/mm3 (0.1-1.0); Monocytes % 6.2 % (1.7-9.3); Neutrophils # 10.3 K/mm3 (1.8-7.8); Neutrophils % 82.9 % (37.0-80.0); Platelet Count 289 K/mm3 (142-424); Red Blood Count 5.31 M/mm3 (4.60-6.20); Red Cell Distribution Width 16.7 % (11.5-17.5); White Blood Count 12.4 K/mm3 (4.8-10.8)
--- NOTE | 2020-03-24 04:40 | HMH.EDCP ---
ED Disposition Clinical Impression: CKD (chronic kidney disease) stage 2, GFR 60-89 ml/min, Elevated left ventricular end-diastolic pressure (LVEDP) Chest pain Qualifiers: Chest pain type: precordial pain Qualified Code(s): R07.2 - Precordial pain Obesity Qualifiers: Obesity type: due to excess calories Obesity classification: adult class 3 (BMI >= 40) Serious obesity comorbidity presence: with serious comorbidity Body mass index: BMI 40.0-44.9 Qualified Code(s): E66.01 - Morbid (severe) obesity due to excess calories; Z68.41 - Body mass index (BMI) 40.0-44.9, adult Disposition: Admitted as Observation Condition on Discharge: Good Referrals: PCP,No [Primary Care Provider] - - Critical Care Critical Care Time: No Attestation: On 03/24/20, the high probability of a clinically significant, sudden or life threatening deterioration of the following system(s) required my full and direct attention, intervention and personal management. The time I documented below is in addition to time spent performing reported procedures but includes the following listed in this critical care notation. Medical Decision Making - Medical Records Medical records reviewed: Yes: I reviewed the patient's medical records. - Colt Inquiry Pt receiving controlled substance: No Vital Signs: 03/24/20 04:14 Temperature 97.9 F Temperature Source Oral Pulse Rate [Left Radial] 68 Respiratory Rate 16 Blood Pressure [Right Arm] 113/78 Blood Pressure Mean [Right Arm] 89 Blood Pressure Source [Right Arm] Automatic Cuff Blood Pressure Position [Right Arm] Sitting 02 Sat by Pulse Oximetry 95 Oxygen Delivery Method Room Air - Lab Data Lab results reviewed: Yes: I reviewed the patient's lab results. Lab Results 03/24/20 04:00: WBC 12.4 H, RBC 5.31, Hgb 14.1, Hct 43.4, MCV 81.6, MCH 26.5 L, MCHC 32.4, RDW 16.7, Plt Count 289, MPV 7.6, Neut % (Auto) 82.9 H, Lymph % (Auto) 10.4, [place] % (Auto) 6.2, Eos % (Auto) 0.3, Baso % (Auto) 0.2, Neut # (Auto) 10.3 H, Lymph # (Auto) 1.3, [place] # (Auto) 0.8, Eos # (Auto) 0.0, Baso # (Auto) 0.0 03/24/20 04:00: Sodium 137, Potassium 3.9, Chloride 100, Carbon Dioxide 25, Anion Gap 15.9 H, BUN 20, Creatinine 1.30 H, Estimated Creat Clear 104, Estimated GFR 55 L, Est GFR ( Amer) 67, Glucose 126 H, Calcium 9.3, Troponin I < 0.01 Result diagrams: 03/24/20 04:00 03/24/20 04:00 Orders (Tests/Meds): ED MEDICATIONS Generic Name Dose Route Start Last Admin Trade Name Freq PRN Reason Stop Dose Admin Sodium Chloride 1,000 mls @ 999 mls/hr 03/24/20 04:30 03/24/20 04:33 Sod Chlor 0.9% 1000ml Bag IV 03/24/20 05:30 999 mls/hr .Q1H1M ASHLEIGH Administration Discontinued Medications Generic Name Dose Route Start Last Admin Trade Name Freq PRN Reason Stop Dose Admin Aspirin 324 mg 03/24/20 04:30 03/24/20 04:31 Aspirin 81mg Chewable Tablet PO 03/24/20 04:31 243 mg ONCE ONE Administration Nitroglycerin 1 gm 03/24/20 04:30 03/24/20 04:31 Nitroglycerin 1 Inch Oint Udp TD 03/24/20 04:31 1 gm ONCE ONE Administration ORDERS Category Date Time Status Chest XR -- portable [XR chest portable] Stat Exams 03/24/20 04:35 Taken Troponin I Q3H Lab 03/24/20 07:30 Ordered Troponin I Q3H Lab 03/24/20 10:30 Ordered - Radiology Data #1 Image(s): Chest Image Reviewed: Yes I reviewed the patient's radiology image Preliminary Findings: Abnormal (cm) - ECG Data Tracing #1 Normal Sinus Rhythm: Yes Ischemic changes: non-specific ST-T wave changes Chest Pain HPI - General Chief Complaint: Chest Pain Stated Complaint: chest pain Time Seen by Provider: 03/24/20 04:20 Mode of Arrival: Ambulatory Source of Information: Patient, EMS, Medical Record Limitations: No Limitations Description of Symptoms (Recalled from ER Triage Doc. by RN): pt stated he started having chest pain at 0330 that he described as a shooting sharp pain across his chest that he rated an 8. pt stated
[2020-03-24 04:43] LABS: Anion Gap 15.9 mEq/L (5-15); Blood Urea Nitrogen 20 mg/dl (9-20); Calcium 9.3 mg/dl (8.4-10.2); Carbon Dioxide 25 mmol/L (22.0-30.0); Chloride 100 mmol/L (98-107); Creatinine Clearance Estimated 104 mL/min (50-200); Estimated Glomerular Filt Rate 55 ml/min (>60); GFR (African American) 67 ML/MIN (>60); Glucose 126 mg/dl (74-100); Potassium 3.9 mmoL/L (3.5-5.1); Sodium 137 mmol/L (136-145)
[2020-03-24 04:58] LABS: Troponin I < 0.01 ng/ml (0.00-0.034)
--- NOTE | 2020-03-24 05:05 | PC.NURSE ---
speaking with Dr. Lugo
--- NOTE | 2020-03-24 05:19 | PC.NURSE ---
report called to JUAN CARLOS Muhammad
--- NOTE | 2020-03-24 05:55 | PC.NURSE ---
patient up to floor via wheelchair.
[2020-03-24 05:59] LABS: Chol/HDL Ratio 3.1 (1-3.5); Cholesterol 173 mg/dl (140-200); HDL Cholesterol 55 mg/dl (40-60); Magnesium 2.2 mg/dl (1.6-2.3); Triglycerides 214 mg/dl (30-150); VLDL Cholesterol 43 mg/dL (0-40)
[2020-03-24 06:09] LABS: Direct LDL Cholesterol 81.97 mg/dL (100-129)
--- NOTE | 2020-03-24 07:15 | PC.NURSE ---
Addendum entered by Marium Banda RN 03/24/20 07:21: bugs were sent to lab in specimen container and biohazard bag Original Note: during admission, KYLIE RANGEL noticed bugs coming off of pt's clothes and jumping on sheets. This nurse and JUAN CARLOS ESPINAL asked pt if he had bed bugs at home and pt replied yes, i can't get rid of them . This nurse and JUAN CARLOS ESPINAL then instructed the pt to undress and shower. During the pts shower,staff exited the room and donned the appropriate PPE before coming back in the room to decontaminate. Pt's clothis has been double bagged and taken downstairs to ambulance bay with pt name on them along with bed linens and towels from pt's room. ER has been notified as well as Clinical Trials Systems Administrator. Pt is now eating breakfast in his room and has been educated on making sure that no clothing from home may be brought to this facility.
--- NOTE | 2020-03-24 08:12 | P.CONPHA_ITS ---
[facility] Pharmacy VTE Monitoring - Patient Demographics Admission date: 03/24/20 Report Date: 03/24/20 Time: 08:12 Allergies/Adverse Reactions: Patient Allergies No Known Allergies Allergy (Verified 11/21/19 12:52) Height: 1.78 m Weight: 135.426 kg Patient Problems: Current Active Problems Obesity (Acute) Chest pain (Acute) Elevated left ventricular end-diastolic pressure (LVEDP) (Acute) CKD (chronic kidney disease) stage 2, GFR 60-89 ml/min (Chronic) - VTE Risk Labs: VTE Related Lab Results Hgb 14.1 g/dL (14.1-18.0) 03/24/20 04:00 Hct 43.4 % (42.0-52.0) 03/24/20 04:00 Plt Count 289 K/mm3 (142-424) 03/24/20 04:00 BUN 20 mg/dl (9-20) 03/24/20 04:00 Creatinine 1.30 mg/dl (0.66-1.25) H 03/24/20 04:00 Estimated Creat Clear 104 mL/min (50-200) 03/24/20 04:00 VTE Score: 7 VTE Risk Level: Moderate Risk - Prophylaxis VTE Prophylaxis Ordered?: Yes Types of VTE Prophylaxis: TEDS Knee High Location of Applied Device: Bilateral Lower Extremeties
[2020-03-24 08:56] LABS: Troponin I < 0.01 ng/ml (0.00-0.034)
--- NOTE | 2020-03-24 09:06 | HMH.HP ---
*Admission Date: 03/24/20 *Chief complaint: chest pain *History of present illness: Heath is a 69-year-old white male with a history of heart disease and interstitial lung disease who developed onset of left-sided chest pain and pressure about 3:30 AM. He states he was just getting ready to go to bed when the pain started. He was not doing anything exertional. He had no increased shortness of breath, palpitations, or nausea. He took a nitroglycerin tablet at home with no improvement and therefore presented to the emergency room. He was worked up in the ER earlier this morning. His EKG showed no acute changes. Cardiac enzymes were negative. Because of his history of heart disease and persistent chest pain he has been admitted for further evaluation with serial enzymes and cardiology consult. On arrival to the floor this morning, staff noted bugs on his clothing. He admitted to having a bedbug infestation at home. All of his belongings from home were bagged in plastic bags and he bathed and showered and was placed in hospital gown. [facility] History Medical History: Reports:: Atherosclerotic Heart Disease, Congestive Heart Failure (diastolic), Coronary Artery Disease, Gastroesophageal Reflux Disease(GERD), Hyperlipidemia, Hypertension Denies:: Cancer, Diabetes Mellitus Type 1, Diabetes Mellitus Type 2, Internal Pacemaker, Lung Disease, MRSA, Seizures *Have you ever received a pneumonia vaccine?: Yes *Have you received a flu vaccine this season?: Yes Other Medical History: Reports: Anemia, Arthritis, Other (Interstitial lung disease). Denies: Blood Transfusion Reaction Laterality Cases: Bilateral: Arthroscopy Knee Other Surgeries: Yes: Cardiac Catheterization, Coronary Stent. No: Pacemaker Amputation: No Fractures: No - *Social History Smoking Status: Former smoker Tobacco Type: cigarettes # Packs/Day (cigarettes): 1 #Yrs smoked (if former smoker): 16 Alcohol Intake: former Alcohol Intake Frequency:: other Substance Use Type: denies use *Occupational Status:: disabled Housing: house Household Members: family *Travel in the last 8 weeks: None Family Hx:: Anemia, Cancer, Coronary Artery Disease, Heart Attack, Hyperlipidemia, Hypertension Review of Systems - Constitutional Denies chills, Denies weakness, Denies weight loss - Eyes Denies blurry vision - ENT Denies nasal congestion, Denies sinus pressure, Denies sore throat - *Cardiovascular Reports other (See HPI) - *Respiratory Reports shortness of breath with activity, Denies chest congestion, Denies cough - *Gastrointestinal Denies abdominal pain, Denies change in bowel habits, Denies heartburn, Denies difficulty swallowing - *Genitourinary Reports frequent nighttime urination, Denies difficulty urinating - *Musculoskeletal Reports joint pain, Denies muscle weakness - Integumentary/Breasts Denies rash - *Neurologic Denies dizziness, Denies headache(s) - Psychiatric Denies anxiety, Denies confusion, Denies depression - Endocrine Denies excessive sweating - Hematologic/Lymphatic Denies easy bruising - Allergic/Immunologic Denies itchy eyes Meds Home Medications Medication Instructions Recorded Confirmed Type Aspirin [Aspirin 81mg chewable 81 mg PO DAILY 08/16/18 03/24/20 History tab] Cyanocobalamin (Vitamin B-12) 1,000 mcg PO DAILY 08/16/18 03/24/20 History [B-12] Multivit-Min36/Iron/Folic Acid 1 each PO DAILY 08/16/18 03/24/20 History [Geritol Complete Tablet] omeprazole 40 mg capsule,delayed 40 mg PO DAILY #90 cap 09/15/19 03/24/20 Rx release diphenhydramine HCl 25 mg capsule 50 mg PO BID PRN 11/21/19 03/24/20 History prednisone 10 mg tablet 30 mg PO DAILY tab 11/21/19 03/24/20 History Amoxicillin [Amoxicillin 500mg 500 mg PO TID 03/24/20 03/24/20 History Cap] Atorvastatin Calcium [Lipitor 40mg 40 mg PO HS 03/24/20 03/24/20 History Tab] Furosemide [Furosemide 40MG tAB] 40 mg PO DAILY 03/24/20 03/24/20 Histor
--- NOTE | 2020-03-24 09:36 | HMH.PHAINT ---
HOME MEDICATIONS RECONCILED FROM RX FILL HISTORY.
--- NOTE | 2020-03-24 10:19 | PC.NURSE ---
Paged Dr. García for consult on this pt. Returned call and said he would be here in the morning.
[2020-03-24 11:02] LABS: Troponin I < 0.01 ng/ml (0.00-0.034)
--- NOTE | 2020-03-24 16:13 | PC.NURSE ---
Pt has been pleasant and cooperative this shift. A&O X4. No complaints of pain or SOA. Pt is on room air with sats. >90%. Lungs CTA. No edema noted. Pt ambulates independently to/from the bathroom and voids without issue. No BM this shift. Pt has slept intermittently today. 20 G peripheral IV in the LT AC is patent and infusing NS @ 50 ML/HR. VSS. Call light within reach. Will continue to monitor.
[2020-03-25] VITALS: BP 137/68; PULSE 70; PULSE 95; RESP 17; TEMP 36.6; O2SAT 92
--- NOTE | 2020-03-25 | CA_ITS ---
APPROVED REPORT Exam: Pharmacologic Technologist: Rosemarie Reddy Ht: 5 ft 10 in Wt: 298 lbs BSA: 2.47 m2 HR: 68 bpm BP: 119/77 mmHg Indications: Chest pain, CAD Medical History Medications: Omeprazole,,,,, Furosemide (LASIX),,,,, Aspirin,,,,, Multi Vitamin,,,,, Vitamin B12,,,,, Atorvastatin,,,,, Carvedilol,,,,, Prednisone,,,,, Nitroglycerin,,,,, SpirOnolactone,,,,, DiPHENHYDRAMINE,,,,, Nitedanib,,,,, Stress Test Details Test: LEXISCAN HR Resting HR: 72 bpm Max Heart Rate (APMHR): 153 bpm Max HR Achieved: 95 bpm Target HR (85% APMHR): 130 bpm % of APMHR: 62 Recovery HR: 76 bpm BP Resting BP: 119.0/77.0 mmHg Max BP: 129.0/72.0 mmHg Recovery BP: 123.0/71.0 mmHg ECG Clinical Reason for Termination: Completed Protocol Exercise duration: 04:02 min Highest Stage Achieved: Exercise capacity: 1.0 METs Stress ECG Conclusion Resting ECG: Normal sinus rhythm Symptoms: No chest pain Arrhythmias/Ectopy: Rare PVC ST-T Changes: <1.[address] segment changes. Conclusion: Non-diagnostic lexiscan stress test. Patient received the infusion per protocol without chest pain, ST segment changes or significant arrhythmias (rare PVC noted). See the nuclear report for further information. Test Summary . . Myoview Injected . . . . Stop exercise at 04:02 . . . . . Electronically signed by : Camilo Tinoco, 03/25/2020 17:41:03
--- NOTE | 2020-03-25 00:26 | ECG_ITS ---
APPROVED REPORT Exam: Resting ECG HR:66 bpm ECG Measurements Heart Rate 66 AXES HI 158 P 25 QRSd 72 QRS 56 QT 398 T 37 QTc 417 <Conclusion> Sinus rhythm with PVC'S Incomplete RBBB Abnormal ECG Electronically signed by : Yo Meeks, 03/25/2020 09:01:53
--- NOTE | 2020-03-25 03:12 | PC.NURSE ---
0020- SRNA reported to this RN that pt c/o chest pain. Upon assessment pt stated he had some CP described as pressure. Pt rated pain 2 out of 10. No N/V, SOA, diaphoresis, lightheaded or dizziness. No report of radiating pain. EKG performed. Pt stated pain had resolved by the time EKG was completed. ED MD compared EKG to previous EKG w/ no changes noted. No further orders. Will continue to monitor.
[2020-03-25 04:00] VITALS: BP 135/70; PULSE 50; PULSE 68; RESP 17; TEMP 36.6; O2SAT 91
[2020-03-25 05:33] VITALS: BMI 42.7
[2020-03-25 06:27] LABS: Basophils % 0.1 % (0.1-2.0); Hematocrit 41.9 % (42.0-52.0); Hemoglobin 13.5 g/dL (14.1-18.0); Lymphocytes # 0.8 K/mm3 (0.7-4.5); Lymphocytes % 6.6 % (10-50); Mean Corpuscular HGB Conc 32.2 g/dL (31.8-35.4); Mean Corpuscular Volume 80.8 fl (80-94); Mean Platelet Volume 7.3 fl (7.4-10.4); Monocytes # 0.5 K/mm3 (0.1-1.0); Monocytes % 3.9 % (1.7-9.3); Neutrophils # 10.6 K/mm3 (1.8-7.8); Neutrophils % 89.4 % (37.0-80.0); Platelet Count 224 K/mm3 (142-424); Red Blood Count 5.18 M/mm3 (4.60-6.20); Red Cell Distribution Width 16.5 % (11.5-17.5); White Blood Count 11.9 K/mm3 (4.8-10.8)
[2020-03-25 06:34] LABS: Chloride 102 mmol/L (98-107); Sodium 138 mmol/L (136-145)
[2020-03-25 06:35] LABS: Potassium 3.6 mmoL/L (3.5-5.1)
[2020-03-25 06:37] LABS: Blood Urea Nitrogen 16 mg/dl (9-20); Creatinine Clearance Estimated 74 mL/min (50-200); Estimated Glomerular Filt Rate 75 ml/min (>60); GFR (African American) 90 ML/MIN (>60)
[2020-03-25 06:38] LABS: Anion Gap 15.6 mEq/L (5-15); Calcium 9.5 mg/dl (8.4-10.2); Carbon Dioxide 24 mmol/L (22.0-30.0); Glucose 136 mg/dl (74-100); MANUAL DIFFERENTIAL MANUAL DIFFERENTIAL (MANUAL DIFF)
--- NOTE | 2020-03-25 07:23 | NM_ITS ---
APPROVED REPORT Exam: Nuclear Stress Test Indication: chest pain..short of breath..fatigue Patient Location: Inpatient Stress Tech: Rosemarie Reddy PR Tech:Hannah Gutiérrez ROOPASherita RT(R)(N) Ht: 5 ft 10 in Wt: 295 lbs HR: 68 bpm BP: 119/77 mmHg BSA: 2.46 m2 BMI: 42.3 History: chest pain..short of breath..fatigue Procedure: Patient received a 0.4 mg of intravenous Lexiscan, resting heart rate 68 bpm, resting blood pressure 119/77 mmHg, with Lexiscan maximum heart rate achived was 88 bpm which is Less than 85 % of the maximum predicted heart rate and blood pressure was 129/72 mmHg. With Lexiscan, patient denied any complaint of chest pain. Electrocardiogram Resting electrocardiogram shows sinus rhythm right ventricular conduction delay, with Lexiscan there is less than 1.[address] segment depression noted from the baseline EKG. The EKG portion of the Lexiscan Myoview is nondiagnostic. Cardiac Stress and Resting SPECT Images: Cardiac Stress and Resting SPECT images were obtained using technetium 99m Myoview 32.2 mCi stress and 10.49 mCi at rest. Gated SPECT for analysis of segmental wall motion and calculation of the ejection fraction also done. Cardiac stress and resting SPECT images show uniform myocardial activity without segmental perfusion abnormality, computer derived ejection fraction is over 65% with no regional wall motion abnormality, right ventricle is normal size and contractility. Conclusion: 1. The EKG portion of the Lexiscan Myoview is nondiagnostic. 2. No scintigraphic evidence of reversible ischemia seen, computer derived ejection fraction is over 65% with no regional wall motion abnormality, right ventricle is normal size and contractility. 3. Normal Lexiscan Myoview study. Electronically signed by : Camilo Tinoco, 03/25/2020 17:47:50
--- NOTE | 2020-03-25 07:36 | HMH.CNCARD ---
History of Present Illness Consult date: 03/25/20 Requesting physician: Heath Lugo Consult reason: chest pain Chief complaint: Chest pain Additional Medical History:: 1. Coronary artery disease A. Status post LAUREL to LAD, 10/2015 B. Cardiac cath, 06/2016, patent LAD stent C. [facility], 2018, ANGIOGRAPHIC RESULTS: 1. The left main artery normal 2. The left anterior descending artery has a stent in the ostial proximal segment which is widely patent free of angiographic in-stent restenosis with excellent distal and proximal transitioning. The remaining LAD has mild 10-20% stenoses 3. The circumflex artery is a large dominant vessel with mild luminal irregularities. The terminal obtuse marginal artery has a 30-40% stenosis along a tortuous bend and a 2.25 mm segment 4. The right coronary artery nondominant small with a proximal 30-40% stenosis 5. The SEN ventriculogram reveals normal 65% 6. The left ventricular end-diastolic pressure elevated at 20-25 mmHg IMPRESSION: 1. Widely proximal LAD stent 2. Normal ejection fraction 3. Elevated LVEDP which is the likely etiology for patient's associated symptoms PLAN: 1. Patient remains on 4 antianginal medications. Avoidance of tobacco products would be highly beneficial. 2. Diuretics in order to decrease LVEDP with likely improved patient's class IV angina 3. Physical therapy with aggressive risk factor modification D. Lexiscan myoview, 01/2019, No ischemia with LVEF 64% 2. Hypertension/Diastolic dysfunction A. Echo, 08/2018, 1. Technically difficult and poor study. 2. Mildly enlarged left atrium, normal left ventricular size, visually estimated ejection fraction 50% with no regional wall motion abnormality, diastolic parameters are inconclusive. 3. Moderately enlarged right ventricle with normal contractility. 4. Mild aortic, mild mitral and tricuspid regurgitation 5. No significant pericardial effusion noted 3. Hyperlipidemia A. on statin therapy 4. Gastroesophageal reflux disease 5. History of bilateral partial Knee replacements about 15 yrs ago History of present illness: Heath is a 69-year-old white male with a history of heart disease and interstitial lung disease who developed onset of left-sided chest pain and pressure about 3:30 AM. He states he was just getting ready to go to bed when the pain started. He was not doing anything exertional. He had no increased shortness of breath, palpitations, or nausea. He took a nitroglycerin tablet at home with no improvement and therefore presented to the emergency room. He was worked up in the ER earlier this morning. His EKG showed no acute changes. Cardiac enzymes were negative. Because of his history of heart disease and persistent chest pain he has been admitted for further evaluation with serial enzymes and cardiology consult. On arrival to the floor this morning, staff noted bugs on his clothing. He admitted to having a bedbug infestation at home. All of his belongings from home were bagged in plastic bags and he bathed and showered and was placed in hospital gown. The above per Dr. Lugo Patient describes the chest pain is left-sided without significant radiation that lasts only a minute or 2. Symptoms are not consistently associated with activity. Patient denies any recent fever, chills, nausea, vomiting or diarrhea. Patient is a non-smoker and nondiabetic. [facility] History Medical History: Reports:: Atherosclerotic Heart Disease, Congestive Heart Failure (diastolic), Coronary Artery Disease, Gastroesophageal Reflux Disease(GERD), Hyperlipidemia, Hypertension Denies:: Cancer, Diabetes Mellitus Type 1, Diabetes Mellitus Type 2, Internal Pacemaker, Lung Disease, MRSA, Seizures *Have you ever received a pneumonia vaccine?: Yes *Have you received a flu vaccine this season?: Yes Other Medical History: Reports: Anemia, Arthritis, Other (Interstitial lung disease). Denies: Blood Transfusion Re
--- NOTE | 2020-03-25 07:56 | HMH.ACPN2 ---
<Ashley Flores - Last Filed: 03/25/20 07:56> Internal Medicine - PN: Subj *Date: 03/25/20 *Time: 07:56 Interval history: This morning patient is comfortable. He had midsternal chest aching about 3 AM this morning. It was of brief duration. EKG was performed and without changes. He denies chest pain this morning as well as shortness of breath. He denies any nausea and indigestion. He is n.p.o. for stress test. He has been seen by cardiology with the following: Assessment and Plan for all problems:: 1. Chest pain with atypical features, normal troponins x3 and EKG without acute ST segment changes. Patient has a history of coronary stenting in 2016 with 2 cardiac caths since then showing widely patent LAD stent. Patient had a Lexiscan Myoview last year showed no ischemia. In light of the normal troponins and no acute changes to his EKG would recommend repeating Lexiscan Myoview at this time. Patient is unable to walk on a treadmill due to his difficulty with his knees due to prior bilateral knee operations. Further recommendations to follow pending results of the stress test. 2. CKD, stage II, stable 3. Hyperlipidemia, on statin therapy, LDL 81 with HDL 55 4. Mild elevated white count with possible lingular infiltrate on chest x-ray. Defer to Dr. Lugo 5. History of GERD, on PPI. 6. Hypertension with history of diastolic dysfunction. Patient is on both Lasix and spironolactone. Laboratory data reveals a normal renal function with a potassium of 3.6. All troponin I's have been negative. Cholesterol numbers show total cholesterol 173, LDL of 81.97, HDL 55 and triglycerides of 214. CBC with white blood cell count slightly elevated at 11,900 and with a hemoglobin of 13.5 and hematocrit 41.9 Exam Vital signs and Labs for Last 24 Hours: Temp Pulse Resp BP Pulse Ox 97.8 F 68 17 135/70 91 L 03/25/20 04:00 03/25/20 04:00 03/25/20 04:00 03/25/20 04:00 03/25/20 04:00 Laboratory Results - last 24 hr 03/24/20 07:50: Troponin I < 0.01 03/24/20 10:35: Troponin I < 0.01 03/25/20 05:44: WBC 11.9 H, RBC 5.18, Hgb 13.5 L, Hct 41.9 L, MCV 80.8, MCH 26.0 L, MCHC 32.2, RDW 16.5, Plt Count 224, MPV 7.3 L, Neut % (Auto) 89.4 H, Lymph % (Auto) 6.6 L, [place] % (Auto) 3.9, Eos % (Auto) 0.0 L, Baso % (Auto) 0.1, Neut # (Auto) 10.6 H, Lymph # (Auto) 0.8, [place] # (Auto) 0.5, Eos # (Auto) 0.0, Baso # (Auto) 0.0 03/25/20 05:44: Sodium 138, Potassium 3.6, Chloride 102, Carbon Dioxide 24, Anion Gap 15.6 H, BUN 16, Creatinine 1.00 D, Estimated Creat Clear 74, Estimated GFR 75, Est GFR ( Amer) 90 D, Glucose 136 H, Calcium 9.5 I & O for Last 24 hours: Intake & Output 03/22/20 03/23/20 03/24/20 03/25/20 11:59 11:59 11:59 11:59 Intake Total 1480 / 1480 1715 / 1715 Balance 1480 / 1480 1715 / 1715 Weight 298 lb 9 oz 298 lb 8.941 oz - Constitutional no acute distress Comments: Sitting in recliner watching football games and playing games on his iPad. He appears comfortable. - *Routine Respiratory Exam Comments: Bibasilar fibrotic crackles - *Routine Cardiovascular Exam Present: RRR - *Routine Abdominal Exam Present: soft, normoactive bowel sounds, obese - *Routine Extremities Exam Absent: edema, calf tenderness - *Routine Neurological Exam Present: alert, oriented X3 Assessment and Plan (1) Chest pain Current visit: Yes Status: Acute Qualifiers: Chest pain type: precordial pain Qualified Code(s): R07.2 - Precordial pain Category: Medical Code(s): R07.9 - Chest pain, unspecified (2) History of ASCVD Current visit: No Status: Acute Category: Medical Code(s): Z86.79 - Personal history of other diseases of the circulatory system (3) Diastolic dysfunction Current visit: No Status: Chronic Category: Medical Code(s): I51.89 - Other ill-defined heart diseases (4) Interstitial lung disease Current visit: Yes Status: Acute Category: Medical Code(s): J84
[2020-03-25 08:00] VITALS: BP 129/53; PULSE 63; PULSE 80; RESP 18; TEMP 36.6; O2SAT 91
--- NOTE | 2020-03-25 08:03 | XR_ITS ---
PROCEDURE: XR CHEST 2V CLINICAL INDICATION: r/o pneumonia Chest pain, cough and congestion COMPARISON: XR CHEST PORTABLE from 03/24/2020 FINDINGS: There is cardiomegaly without failure. Patchy density is present in both lung bases suggesting bibasilar atelectasis and/or infiltrate. IMPRESSION: Bilateral lower lobe atelectasis and/or infiltrate unchanged on the left and slightly worse on the right the the. Dictated by: Vinod Awan MD 03/25/2020 15:18 Electronically signed by Vinod Awan MD in [place] 03/25/2020 15:18
[2020-03-25 08:27] LABS: Lymphocytes % 6 % (10-50); Monocytes % 7 % (2-9); Neutrophils % 87 % (42-76); Platelet Estimate Normal; RBC Morphology Normal; Total Cells Counted 100
--- NOTE | 2020-03-25 13:27 | HMH.ITSHM ---
Current Home Medications as stated by this patient Heath Heck or employee relations representative. [] nitro lipitor asa omepraszole cardvedilol furosemide
[2020-03-25 14:27] VITALS: BMI 42.6
[2020-03-25 16:00] VITALS: PULSE 80
[2020-03-25 16:23] VITALS: BP 126/52; PULSE 69; RESP 18; TEMP 36.5; O2SAT 92
--- NOTE | 2020-03-26 07:48 | HMH.DCSUM ---
General - General Admission date:: 03/24/20 <Heath Lugo - 04/08/20 08:10> 03/24/20 <Ashley Flores - 03/26/20 08:01> Discharge date: 03/25/20 <Ashley Flores - 03/26/20 08:01> HPI HPI: Heath is a 69-year-old white male with a history of heart disease and interstitial lung disease who developed onset of left-sided chest pain and pressure about 3:30 AM. He stated he was just getting ready to go to bed when the pain started. He was not doing anything exertional. He had no increased shortness of breath, palpitations, or nausea. He took a nitroglycerin tablet at home with no improvement and therefore presented to the emergency room. He was worked up in the ER earlier this morning. His EKG showed no acute changes. Cardiac enzymes were negative. Because of his history of heart disease and persistent chest pain he was admitted for further evaluation with serial enzymes and cardiology consult. On arrival to the floor, staff noted bugs on his clothing. He admitted to having a bedbug infestation at home. All of his belongings from home were bagged in plastic bags and he bathed and showered and was placed in hospital gown. <Ashley Flores - 03/26/20 08:01> Hospital Course Hospital Course: Patient's chest pain resolved with Nitropaste. He was continued on maintenance meds from home. He was seen by cardiology with impression of chest pain with atypical features, normal troponins x3 and EKG without acute ST-T segment changes. With patient's history of coronary stenting in 2016 and with 2 cardiac cath since then showing widely patent LAD stent and a normal Lexiscan Myoview last year which showed no ischemia and with normal troponins and no acute EKG changes cardiology ecommended repeating the Lexiscan Myoview. Patient was noted to be unable to walk on a treadmill due to difficulty with knees and due to prior bilateral knee operations. Further recommendations to follow pending results of the stress test. Patient was also noted to have CKD stage II, stable; hyperlipidemia on statins with an LDL of 81; mild elevation of white blood cell count with possible infiltrate on chest x-ray; GERD on PPI; and hypertension with history of diastolic dysfunction treated with both Lasix and spironolactone. Patient did have an episode of chest aching around 3 AM on 03/25/2020. It was brief in duration. EKG was performed without changes. He had no further chest pain. Stress test on 03/25/2020 was reported as normal. Repeat chest x-ray showed atelectasis in both bases. He remained asymptomatic and was eager to go home. He was discharged home on oral antibiotics with follow-up in 10 days. In the p.m. of 03/25/2020 patient was discharged home in stable and satisfactory condition. Medications as per medication reconciliation sheet. He was to follow-up with Dr. Lugo in 10 days and with yDlan Russo, cardiology, in 2 weeks. He was to continue with his diabetic/cardiac diet. <Ashley Flores - 03/26/20 08:15> Objective Vital signs: Temp Pulse Resp BP Pulse Ox 97.7 F 69 18 126/52 L 92 L 03/25/20 16:23 03/25/20 16:23 03/25/20 16:23 03/25/20 16:23 03/25/20 16:23 <Heath Lugo - 04/08/20 08:10> Temp Pulse Resp BP Pulse Ox 97.7 F 69 18 126/52 L 92 L 03/25/20 16:23 03/25/20 16:23 03/25/20 16:23 03/25/20 16:23 03/25/20 16:23 <Ashley Flores - 03/26/20 08:01> Narrative: Exam Vital signs and Labs for Last 24 Hours: Temp Pulse Resp BP Pulse Ox 97.8 F 68 17 135/70 91 L 03/25/20 04:00 03/25/20 04:00 03/25/20 04:00 03/25/20 04:00 03/25/20 04:00 Laboratory Results - last 24 hr 03/24/20 07:50: Troponin I < 0.01 03/24/20 10:35: Troponin I < 0.01 03/25/20 05:44: WBC 11.9 H, RBC 5.18, Hgb 13.5 L, Hct 41.9 L, MCV 80.8, MCH 26.0 L, MCHC 32.2, RDW 16.5, Plt Count 224, MPV 7.3 L, Neut % (Auto) 89.4 H, Lymph % (Auto) 6.6 L, [place] % (Auto) 3.9, Eos % (Auto) 0.0 L, Baso % (Auto) 0.1, N
== END 2020-03-25 17:50 | disposition home or self-care (01) ==
LOC: ER 05:12 → 2ND 05:22
PROVIDERS: Admitting Provider Family Medicine; Emergency Provider Emergency Medicine; PCP Family Medicine; Visit Provider Family Medicine
DX: R07.9 Chest pain, unspecified (principal); I13.0 Hypertensive heart and chronic kidney disease with heart failure and stage 1 through stage 4 chronic kidney disease, or unspecified chronic kidney disease; I50.32 Chronic diastolic (congestive) heart failure; E78.5 Hyperlipidemia, unspecified; I25.10 Atherosclerotic heart disease of native coronary artery without angina pectoris; J84.9 Interstitial pulmonary disease, unspecified; N18.2 Chronic kidney disease, stage 2 (mild); Z79.82 Long term (current) use of aspirin; Z79.899 Other long term (current) drug therapy
CPT/HCPCS: 36415; 71045; 71046; 78452; 80048; 80061; 83735; 84484; 85007; 85025; 93005; 93017; 96365; 99284; A9502; G0378; J2785

== ENCOUNTER → 2020-06-03 09:50 | Outpatient (CLI) | payer MEDICARE, SELFPAY ==
--- NOTE | 2020-06-03 09:58 | XR_ITS ---
PROCEDURE: XR CHEST 2V CLINICAL HISTORY: dypsnea COMPARISON: CR CXRCHP XR chest CHP 2V from 09/16/2017 CR CXR2V XR chest 2V from 09/02/[address] chest w con from 09/14/2018 CR Chest from 01/22/2019 CR XR CHEST PORTABLE from 03/24/2020 CR XR CHEST 2V from 03/25/2020 FINDINGS: There is mild cardiomegaly without failure. Atelectatic or fibrotic changes are present in the right lung base and right lower lung zone laterally. Chronic changes are also present in the left lower lobe. There is a 7 mm nodular opacity in the right perihilar region probably not significantly changed compared to 09/16/2017.. Vague opacity also overlies the mid aspect of the heart slow more posteriorly on the lateral view also probably not significantly changed. No acute bony abnormalities. IMPRESSION: Chronic changes with nodular opacities as described above probably unchanged. Recommended radiographic follow-up to confirm stability. Dictated by: Vinod Awan MD 06/03/2020 10:58 Vinod Awan MD in [place] 06/03/2020 10:58
== END ==
PROVIDERS: PCP Family Medicine; Visit Provider Nurse Practitioner Family
DX: E78.5 Hyperlipidemia, unspecified (principal); I10 Essential (primary) hypertension; I25.10 Atherosclerotic heart disease of native coronary artery without angina pectoris; I51.89 Other ill-defined heart diseases; R06.00 Dyspnea, unspecified; R94.30 Abnormal result of cardiovascular function study, unspecified; Z95.5 Presence of coronary angioplasty implant and graft
CPT/HCPCS: 71046

== ENCOUNTER → 2020-06-07 08:31 | Outpatient (CLI) | payer MEDICARE, SELFPAY ==
--- NOTE | 2020-06-07 08:32 | CA_ITS ---
APPROVED REPORT EXAM: Comprehensive 2D, Doppler, and color-flow Echocardiogram Aircraft Launch And Recovery Technician: Frances Hays RVT Ht: 5 ft 11 in Wt: 295lbs BSA: 2.49 BP: 138/90 mmHg Indications: SOA,CAD,STENT,COPD,HTN,CP,HLD,HOME O2,OBESITY TDS Echo Enhancing Agent Indication: Endocardial border delineation Agent(s) / Amount(s) Used: Definity 2 cc 2D Dimensions LVOT 1.96 cm (M/F) 1.5-2.5 M-Mode Dimensions RVDd 3.64 cm (0.9-2.6) LVDd 4.73 cm (3.5-5.7) LVDs 3.55 cm (3.5-5.7) IVSd 1.25 cm (0.6-1.1) PWd 0.98 cm (0.6-1.1) EF (Teich) 49.40% FS 24.90% EDV (Teich) 103.90 mL ESV (Teich) 52.60 mL Left Ventricle Left atrium is mildly enlarged, left ventricle is normal size, mild concentric left ventricular hypertrophy, visually estimated ejection fraction 55% with no regional wall motion abnormality, endocardial surfaces are poorly visualized, Definity contrast was utilized to delineate the endocardial surfaces. Diastolic parameters are inconclusive. Right Ventricle Right atrium is mildly enlarged, right ventricle is moderately dilated with moderate reduction in right ventricular contractility. Aortic Valve Aortic valve is minimally thickened and calcified, there is no aortic stenosis or aortic insufficiency. Mitral Valve Mitral valve leaflets are minimally thickened, there is mild mitral regurgitation. Tricuspid Valve Tricuspid valve is grossly normal, there is mild tricuspid regurgitation, tricuspid regurgitation jet velocity is inadequate for calculation of the right ventricular systolic pressure. Pulmonic Valve Pulmonic valve is poorly visualized. Great Vessels Aortic root is normal size. Pericardium Trivial pericardial effusion noted Conclusion 1. Normal left ventricular size, mild concentric left ventricular hypertrophy, visually estimated ejection fraction 55% with no regional wall motion abnormality, Definity contrast was utilized to delineate the endocardial surfaces. Diastolic parameters are inconclusive. 2. Moderately enlarged right ventricle with moderate reduction in right ventricular systolic function. 3. Mild mitral and tricuspid regurgitation. 4. Trivial pericardial effusion noted. Electronically signed by : Camilo Tinoco, 06/07/2020 11:08:49
== END ==
PROVIDERS: PCP Family Medicine; Visit Provider Nurse Practitioner Family
DX: E78.5 Hyperlipidemia, unspecified (principal); I10 Essential (primary) hypertension; I25.10 Atherosclerotic heart disease of native coronary artery without angina pectoris; R06.00 Dyspnea, unspecified; R94.30 Abnormal result of cardiovascular function study, unspecified; Z95.5 Presence of coronary angioplasty implant and graft
CPT/HCPCS: 93306; Q9957

== ENCOUNTER → 2020-06-18 12:45 | Outpatient (CLI) | payer MEDICARE, SELFPAY ==
[2020-06-18 13:30] VITALS: PULSE 90; PULSE 95
--- NOTE | 2020-06-18 14:32 | CT_ITS ---
PROCEDURE: CT CHEST WO CON The CLINICAL INDICATION: Pulmonary fibrosis, soa COMPARISON: CT CHESTW CT chest w con from 09/14/2018 TECHNIQUE: Axial images obtained with sagittal and coronal reformats. All CT scans at the facility use one or more dose reduction, viz: automated exposure control, ma/kV adjustment per patient size (including targeted exams where dose is matched to indication, i.e. head), or iterative reconstruction technique. Axial images are obtained inspiration and expiration with high-resolution. Prone images also obtained with high-resolution. No significant air trapping. FINDINGS: There are scattered mildly prominent mediastinal lymph nodes once again noted. These are not significantly changed. Coronary artery calcifications are present. There is mild pericardial thickening measuring up to 13 mm posteriorly slightly more prominent than when compared to the previous exam. There is COPD changes with pulmonary fibrosis. There is peripheral interlobular septal thickening most prominent in the lingula with some scattered honeycombing. She there is mild atrophy noted on the expiration images. Medial she at upper abdominal images show a stable hypodense lesion left hepatic lobe at 2.3 cm. Multiple gallstones are present. IMPRESSION: 1. Overall no significant change in the pulmonary fibrosis as described above. 2. No change mild mediastinal adenopathy 3. Cholelithiasis Dictated by: Vinod Awan MD 06/25/2020 10:09 Vinod Awan MD in [place] 06/25/2020 10:09
== END ==
PROVIDERS: PCP Family Medicine; Visit Provider Internal Medicine Pulmonary Disease
DX: J84.10 Pulmonary fibrosis, unspecified (principal); J84.9 Interstitial pulmonary disease, unspecified
CPT/HCPCS: 71250; 94060; 94618; 94640; 94727; 94729

== ENCOUNTER → 2020-06-25 11:02 | Outpatient (CLI) | payer MEDICARE, SELFPAY ==
[2020-06-25 13:03] LABS: Creatine Kinase 38 U/L (55-170); Uric Acid 8.9 mg/dl (3.5-8.5)
[2020-06-25 13:04] LABS: Anion Gap 19.1 mEq/L (5-15); Blood Urea Nitrogen 19 mg/dl (9-20); Calcium 10.3 mg/dl (8.4-10.2); Carbon Dioxide 26 mmol/L (22.0-30.0); Chloride 105 mmol/L (98-107); Estimated Glomerular Filt Rate 67 ml/min (>60); GFR (African American) 81 ML/MIN (>60); Glucose 111 mg/dl (74-100); Potassium 4.1 mmoL/L (3.5-5.1); Sodium 146 mmol/L (136-145)
[2020-06-25 13:08] LABS: C-Reactive Protein 15.7 mg/L (0-4)
[2020-06-25 13:17] LABS: Basophils % 0.2 % (0.1-2.0); Eosinophils # 0.1 K/mm3 (0.0-0.4); Eosinophils % 0.6 % (0.1-12.0); Hematocrit 48.1 % (42.0-52.0); Hemoglobin 14.8 g/dL (14.1-18.0); Lymphocytes # 0.4 K/mm3 (0.7-4.5); Lymphocytes % 3.9 % (10-50); Mean Corpuscular HGB Conc 30.7 g/dL (31.8-35.4); Mean Corpuscular Hemoglobin 25.4 pg (27.0-31.2); Mean Corpuscular Volume 82.9 fl (80-94); Mean Platelet Volume 7.7 fl (7.4-10.4); Monocytes # 0.4 K/mm3 (0.1-1.0); Monocytes % 4.2 % (1.7-9.3); Neutrophils # 9.4 K/mm3 (1.8-7.8); Platelet Count 324 K/mm3 (142-424); Red Blood Count 5.81 M/mm3 (4.60-6.20); Red Cell Distribution Width 17.5 % (11.5-17.5); White Blood Count 10.4 K/mm3 (4.8-10.8)
[2020-06-25 13:20] LABS: MANUAL DIFFERENTIAL MANUAL DIFFERENTIAL (MANUAL DIFF)
[2020-06-25 14:03] LABS: Erythrocyte Sedimentation Rate 6 mm/hr (0-20)
[2020-06-25 14:21] LABS: Eosinophils % 1 % (0-3); Lymphocytes % 6 % (10-50); Monocytes % 4 % (2-9); Neutrophils % 89 % (42-76); Total Cells Counted 100
[2020-06-25 14:22] LABS: Platelet Estimate Normal
[2020-06-25 14:23] LABS: Hypochromasia 1+
[2020-06-26 08:16] LABS: Hep A Ab, IgM Negative (Negative); Hepatitis B Core Antibody IgM Negative (Negative); Hepatitis B Surface Antigen Negative (Negative)
[2020-06-26 13:12] LABS: Antiscleroderma-70 Antibodies <0.2 AI (0.0-0.9); Sjogren's Anti-SS-A <0.2 AI (0.0-0.9); Sjogren's Anti-SS-B <0.2 AI (0.0-0.9); Smith/RNP Antibodies <0.2 AI (0.0-0.9)
[2020-06-26 13:53] LABS: Anti-Centromere B Antibodies <0.2 AI (0.0-0.9); Anti-DNA (DS) Ab Qn 9 IU/mL (0-9); RA Latex Turbid. <10.0 IU/mL (0.0-13.9)
[2020-06-26 13:54] LABS: Hepatitis C Antibody <0.1 s/co ratio (0.0-0.9)
[2020-06-26 14:29] LABS: Aldolase 6.6 U/L (3.3-10.3)
[2020-06-26 17:14] LABS: IgG, Subclass 1 775 mg/dL (248-810); IgG, Subclass 2 374 mg/dL (130-555); IgG, Subclass 3 49 mg/dL (15-102); Immunoglobulin G, Qn 1361 mg/dL (603-1613)
[2020-06-26 19:04] LABS: Cytoplasmic (C-ANCA) <1:20 titer (Neg:<1:20); IgG, Subclass 4 33 mg/dL (2-96); Perinuclear (P-ANCA) <1:20 titer (Neg:<1:20)
[2020-06-27 11:28] LABS: Anti-Cyclic Citrullinated Pept 7 units (0-19)
[2020-06-28 10:28] LABS: Antinuclear Antibodies, IFA Positive (.)
[2020-06-28 10:31] LABS: QuantiFERON-TB Gold Plus Negative (Negative)
[2020-06-29 11:30] LABS: Blastomyces Antibody Negative (Neg:<1:1)
[2020-06-29 22:06] LABS: Aspergillus flavus Negative (Neg:<1:1); Aspergillus fumigatus Negative (Neg:<1:1)
[2020-06-30 12:51] LABS: Aspergillus niger Negative (Neg:<1:1)
[2020-07-20 20:21] LABS: Antinuclear Antibodies (ANA) POSITIVE ABNORMAL
== END ==
PROVIDERS: Visit Provider Internal Medicine Pulmonary Disease
DX: R06.00 Dyspnea, unspecified; J84.9 Interstitial pulmonary disease, unspecified; J44.9 Chronic obstructive pulmonary disease, unspecified; J84.10 Pulmonary fibrosis, unspecified; J98.4 Other disorders of lung; J67.9 Hypersensitivity pneumonitis due to unspecified organic dust; D84.9 Immunodeficiency, unspecified; D86.1 Sarcoidosis of lymph nodes; R63.4 Abnormal weight loss; R42 Dizziness and giddiness; Z72.0 Tobacco use
CPT/HCPCS: 36415; 80048; 80074; 82085; 82550; 82784; 82787; 84550; 85007; 85025; 85651; 86038; 86140; 86200; 86225; 86235; 86256; 86431; 86480; 86606; 86612; 86698

== ENCOUNTER → 2020-07-22 14:42 | Outpatient (CLI) | payer MEDICARE, SELFPAY ==
[2020-07-22 15:37] LABS: Alanine Aminotransferase 22 U/L (12-78); Albumin Level 4.1 g/dl (3.5-5.0); Albumin/Globulin Ratio 1.2 (1.1-1.8); Alkaline Phosphatase 143 U/L (38-126); Anion Gap 15.1 mEq/L (5-15); Aspartate Amino Transferase 29 U/L (17-59); Bilirubin,Total 1.5 mg/dl (0.2-1.3); Blood Urea Nitrogen 15 mg/dl (9-20); Calcium 9.5 mg/dl (8.4-10.2); Carbon Dioxide 26 mmol/L (22.0-30.0); Chloride 102 mmol/L (98-107); Estimated Glomerular Filt Rate 60 ml/min (>60); GFR (African American) 73 ML/MIN (>60); Globulin 3.4 g/dL (1.3-3.2); Glucose 153 mg/dl (74-100); Potassium 3.1 mmoL/L (3.5-5.1); Sodium 140 mmol/L (136-145); Total Protein,Serum 7.5 g/dl (6.3-8.2)
[2020-07-22 15:43] LABS: C-Reactive Protein 14.6 mg/L (0-4)
== END ==
PROVIDERS: Visit Provider Internal Medicine Pulmonary Disease
DX: J84.9 Interstitial pulmonary disease, unspecified (principal); R06.00 Dyspnea, unspecified
CPT/HCPCS: 36415; 80053; 86140

== ENCOUNTER 2020-09-05 20:22 | Emergency (ER) | payer MEDICARE, SELFPAY ==
[2020-09-05 20:29] VITALS: BP 00/00
[2020-09-05 20:34] VITALS: BMI 35.9
--- NOTE | 2020-09-05 20:53 | PC.NURSE ---
Pt arrived via EMS with ACLS initiated on scene. 7.[address] and EMS bag-mask ventilating pt on arrival w/ bilateral breath sounds auscultated. Pt dusky on arrival, no central pulses present. Pt GCS of 3. EMS reports witnessed arrest by family in bathroom. CPR started by family member and continued by EMS at 2001. 20g IV to left ac inserted by EMS with NS bolus infusing. Pt received epi twice in route and was shocked once. 2028- Pt arrived 2029- 1mg epi given. FSBS 137. Asystole on monitor. No pulses palpable. CPR reinitiating 2031- IV blown attempting to push amp of Bicarb. 2032-1mg epi given et tube. 2033- Pulse check. No pulses palpable. Asystole on monitor. 2033- TOD called by
--- NOTE | 2020-09-05 20:58 | [facility].EDCPR ---
ED Disposition Clinical Impression: Cardiopulmonary arrest Disposition: Condition on Discharge: Referrals: Heath Lugo MD [Primary Care Provider] - - Critical Care Critical Care Time: No Attestation: On 09/05/20, the high probability of a clinically significant, sudden or life threatening deterioration of the following system(s) required my full and direct attention, intervention and personal management. The time I documented below is in addition to time spent performing reported procedures but includes the following listed in this critical care notation. [facility] Code Documentation - Arrest Information Outside of Hospital The Code Document Section documentation for [id number] Heath Heck was populated with data that defaulted in from the reel man in the Code Assessment on f_Reg Service Date] to provide within this report, the status and treatment of the patient in the ED during a Code. This documentation will be supplemented with my direct findings within the body of the report. Date Treatment Initiated: 09/05/20 Time Treatment Initiated: 20:02 Treatment Initiated By: EMS Location of Arrest: Home in bathroom Arrest Witnessed: Yes Estimated Down Time: 5 min according to family - ALS Code Inititation ALS Initiated By: EMS ALS Type: ACLS ALS Initiated Start Time: 20:02 - Patient Condition At Code Start Condition of Patient at Start of Code: Pulseless Monitoring Devices: ECG Monitor - Circulation Initial Cardiac Rhythm: Asystole - Oxygenation Oxygen Breathing Status: Assisted - Labs Fingerstick Blood Glucose: 137 - Procedures ABG's Drawn: No Labs Drawn: No - Assisted Ventilation ETT Size: 7.5 ETT Insertion Site: Oral Endotracheal ETT Tube Inserted By: EMS - Code End Time Code Ended: 20:34 Patient Successfully Resuscitated: No Reason Code Ended: - Efforts Terminated Family Members Present During Code: No Names of All Individuals Present at Code: House. TJ. Tim. Jones. Alessandra. RT - Mental Status Eye Opening: None Motor Response: None Verbal Response: None Coma scale total: 3 - Patient Expiration Date: 09/05/20 Expiration Time: 20:34 Pronounced by: Time Pronounced: 20:34 Post Mortem Care Provided: Yes Next of Kin Notified: Yes Family at hospital Next of Kin Notification Time: 20:40 Organ Donor: No (Unknown) Horacio Notified: Yes Pcb Designer Case: Yes Pcb Designer Notified: Yes Medical Decision Making - Medical Records Medical records reviewed: Yes: I reviewed the patient's medical records. - Colt Inquiry Pt receiving controlled substance: No Medical Decision Narrative: pt with cpr from home as he had passed out in bathroom and acls protocols - asystolic and pt pronounced CPR HPI - General Stated Complaint: cardiac arrest Time Seen by Provider: 09/05/20 20:30 Source of Information: Relative Limitations: Physical Limitations - History of Present Illness MD complaint: collapsed during rest Associated injuries: No - Related Data Home Medications Medication Instructions Recorded Confirmed Aspirin [Aspirin 81mg chewable 81 mg PO DAILY 08/16/18 07/24/20 tab] Cyanocobalamin (Vitamin B-12) 1,000 mcg PO DAILY 08/16/18 07/24/20 [B-12] Multivit-Min36/Iron/Folic Acid 1 each PO DAILY 08/16/18 07/24/20 [Geritol Complete Tablet] diphenhydramine HCl 25 mg capsule 50 mg PO BID PRN 11/21/19 07/24/20 Nitroglycerin [Nitrostat 0.4mg SL 0.4 mg SL Q5MINP PRN 03/24/20 07/24/20 Tablet] Spironolactone 50 mg PO DAILY 03/24/20 07/24/20 Previous Rx's Medication Instructions Recorded furosemide 40 mg tablet 40 mg PO DAILY #90 tab 04/02/20 carvedilol 6.25 mg tablet 6.25 mg PO BID #180 tab 04/08/20 atorvastatin 40 mg tablet 40 mg PO HS #90 tab 05/27/20 albuterol sulfate 90 mcg/actuation 1 inh INHALATION QID PRN #6.7 g 06/25/20 aerosol inhaler mycophenolate mofetil 500 mg tablet 500 mg PO BID #60 tab 06/25/20
--- NOTE | 2020-09-05 21:28 | PC.NURSE ---
Addendum entered by James Varghese RN 09/05/20 21:40: Case # [id number] Original Note: ROYCE ruled out pt
--- NOTE | 2020-09-05 21:36 | PC.NURSE ---
daughter at bedside. call placed to ten jon.
--- NOTE | 2020-09-05 21:37 | PC.NURSE ---
[facility] notified at this time
--- NOTE | 2020-09-05 21:51 | PC.NURSE ---
Parish notified at this time
--- NOTE | 2020-09-05 22:10 | PC.NURSE ---
Emiliano Alaniz arrived at this time and is speaking with family
[2020-09-05 22:51] VITALS: BP 00/00; PULSE 0; RESP 0; TEMP -17.7; TEMP 0; O2SAT 0
[2020-10-22 13:03] LABS: POC Glucose,Bedside 137 (70-110)
== END 2020-09-05 22:52 | disposition expired ==
PROVIDERS: Emergency Provider Emergency Medicine; PCP Family Medicine
DX: I46.9 Cardiac arrest, cause unspecified (principal); I25.10 Atherosclerotic heart disease of native coronary artery without angina pectoris; I50.9 Heart failure, unspecified; K21.9 Gastro-esophageal reflux disease without esophagitis; E78.5 Hyperlipidemia, unspecified; Z87.891 Personal history of nicotine dependence; Z79.899 Other long term (current) drug therapy
CPT/HCPCS: 96374; 31500; 82962; 96375; 99284